=== PATIENT | female | born 1965 | race Caucasian/White ===

== ENCOUNTER 2020-05-12 08:55 | Outpatient (REF) | payer OTHER, SELFPAY ==
[2020-05-12 09:13] LABS: COVID-19 Test Negative (Negative)
== END 2020-05-12 08:56 | disposition home or self-care (01) ==
LOC: HO.EMPCOV 08:55
PROVIDERS: Visit Provider Internal Medicine
DX: Z20.822 Contact with and (suspected) exposure to COVID-19 (principal)
CPT/HCPCS: 36415; 87635; C9803

== ENCOUNTER 2020-05-23 13:53 | Outpatient (REF) | payer SELFPAY ==
[2020-05-23 14:38] LABS: Cholesterol 172 mg/dL
== END 2020-05-23 13:54 | disposition home or self-care (01) ==
LOC: HO.LNC 13:53
PROVIDERS: Visit Provider Pathology Anatomic Pathology & Clinical Pathology
DX: Z13.89 Encounter for screening for other disorder (principal)
CPT/HCPCS: 36415; 82465

== ENCOUNTER 2020-08-13 08:01 | Outpatient (REF) | payer OTHER, SELFPAY ==
[2020-08-13 08:27] LABS: COVID-19 Test Negative (Negative)
== END 2020-08-13 08:02 | disposition home or self-care (01) ==
LOC: HO.EMPCOV 08:01
PROVIDERS: Visit Provider Internal Medicine
DX: Z20.822 Contact with and (suspected) exposure to COVID-19 (principal)
CPT/HCPCS: 36415; 87635; C9803

== ENCOUNTER 2020-09-03 11:54 | Day surgery (SDC) | payer OTHER, SELFPAY ==
[2020-08-28 12:38] VITALS: BMI 30.9
--- NOTE | 2020-09-01 14:31 | HO.ANESPROP2 ---
Documented by User: Charlette George 09/01/20 14:32 HPI - Anesthesia Eval Consult details Narrative: 55yo F for Upper Endoscopy and Colonoscopy [facility] Past Medical History Medical History (Updated 08/28/20 @ 12:42 by Madyson Foster) Anemia Back pain Cervical dysplasia Elevated cholesterol GERD (gastroesophageal reflux disease) Hiatal hernia Hx of papillary thyroid carcinoma Hypothyroid Seizures Surgical History Surgical History (Updated 08/28/20 @ 12:42 by Madyson Foster) H/O colonoscopy Hx of parathyroidectomy Hx of tonsillectomy Hx of total thyroidectomy Social History Social History (Updated 08/28/20 @ 12:44 by Madyson Foster) Household Members: Spouse Are you a primary healthcare receptionist to a significant other at home: No Do you presently have visiting nurse or other home services: No Use of substances other than those prescribed or required for medical reasons: No Have you been hit, kicked, punched, or otherwise hurt by someone within the past year? If so, by whom?: No Are you DNR?: No Advance Directives Information Provided: No Recently lost weight without trying: No Eating poorly because of decreased appetite: No Nutrition Risks: No Nutritional Risk Patient : No Poor oral hygiene: No Meds Allergies Allergy/AdvReac Type Severity Reaction Status Date / Time No Known Allergies Allergy Verified 08/28/20 12:25 Home Medications Medication Instructions Recorded Confirmed Last Taken Type cholecalciferol (vitamin D3) 25 mcg PO DAILY 08/28/20 08/28/20 Unknown History [Vitamin D3] levothyroxine [Euthyrox] 125 mcg PO DAILY 08/28/20 08/28/20 09/03/20 History omeprazole [Prilosec] 20 mg PO DAILY 08/28/20 08/28/20 Unknown History rosuvastatin 40 mg PO DAILY 08/28/20 08/28/20 Unknown History Exam Exam Date and Time: September 01, 2020 1431 Height,Weight and Vital Signs: Height 5 ft 4 in Weight 81.647 kg Assessment and Plan Assessment Anesthesia Assessment: Chart Reviewed Documented by User: Ivis Smith 09/03/20 12:50 [facility] Past Medical History Medical History (Updated 08/28/20 @ 12:42 by Madyson Foster) Anemia Back pain Cervical dysplasia Elevated cholesterol GERD (gastroesophageal reflux disease) Hiatal hernia Hx of papillary thyroid carcinoma Hypothyroid Seizures Family History Family history of problems with anesthesia: No Surgical History Surgical History (Updated 08/28/20 @ 12:42 by Madyson Foster) H/O colonoscopy Hx of parathyroidectomy Hx of tonsillectomy Hx of total thyroidectomy History of Problems with Anesthesia: No Social History Social History (Updated 08/28/20 @ 12:44 by Madyson Foster) Household Members: Spouse Are you a primary healthcare receptionist to a significant other at home: No Do you presently have visiting nurse or other home services: No Use of substances other than those prescribed or required for medical reasons: No Have you been hit, kicked, punched, or otherwise hurt by someone within the past year? If so, by whom?: No Are you DNR?: No Advance Directives Information Provided: No Recently lost weight without trying: No Eating poorly because of decreased appetite: No Nutrition Risks: No Nutritional Risk Patient : No Poor oral hygiene: No Meds Allergies Allergy/AdvReac Type Severity Reaction Status Date / Time No Known Allergies Allergy Verified 08/28/20 12:25 Home Medications Medication Instructions Recorded Confirmed Last Taken Type cholecalciferol (vitamin D3) 25 mcg PO DAILY 08/28/20 08/28/20 Unknown History [Vitamin D3] levothyroxine [Euthyrox] 125 mcg PO DAILY 08/28/20 08/28/20 09/03/20 History omeprazole [Prilosec] 20 mg PO DAILY 08/28/20 08/28/20 Unknown History rosuvastatin 40 mg PO DAILY 08/28/20 08/28/20 Unknown History Exam Height,Weight and Vital Signs: Vital Signs Temp Pulse Resp BP Pulse Ox 09/03/20 12:08 98.4 F 82 16 126/82 97 Airway Mallampati Class: II TM Dist: >3cm Neck ROM: Full Heart: RRR Lungs: CTAB Assessment and Plan Assessment Anesthesia Assessment: Anesthesia Plan Discussed and Chart Reviewed Final Anesthetic Review NPO: Yes ASA Class: II Final Preanesthetic Review: No Changes in Pt Med Stat, Meds/Allgs Chart Reviewed, Consent Obtained/Reviewed and Anes Risks/Benef Reviewed Patient Risk: Low Procedure Risk: Low Assessment/Block/Sedation in SS: Assess/Block/Sedation-SS Anesthetic Plan Anesthetic Plan: MAC: Disposition: Standard PACU
[2020-09-03] VITALS (12 sets, daily range): BP systolic 96–148; BP diastolic 57–95; PULSE 59–86; RESP 16–20; TEMP 36.1–36.9; O2SAT 97–100
--- NOTE | 2020-09-03 | ECG_ITS ---
Test Reason : CHEST PAIN Blood Pressure : / mmHG Vent. Rate : 055 BPM Atrial Rate : 055 BPM P-R Int : 146 ms QRS Dur : 082 ms QT Int : 492 ms P-R-T Axes : 043 052 050 degrees QTc Int : 470 ms Sinus bradycardia Otherwise normal ECG No previous ECGs available Referred By: Carter Phillips Electronically Signed By:MANDIE WILLETT
[2020-09-03] MEDS: Lactated Ringers 1,000 ML 100 ML IVCONT (12:17)
--- NOTE | 2020-09-03 12:53 | MHC.SHP ---
Pre-Procedural Eval Section A The patient is an INPATIENT: No Changes since office visit: No Cold of Flu in the past 2 weeks, No New Medical Problems, No Changes in Medication and No Patient answered all questions The History & Physical has been completed within 30 days and I have reviewed it.: Yes Section B Chief Complaint: screening,hx of colonic polyps Allergies: Allergies Allergy/AdvReac Type Severity Reaction Status Date / Time No Known Allergies Allergy Verified 08/28/20 12:25 Plan I have reviewed the history and physical and performed a pertinent physical examination on my patient. No changes have occurred unless specified.
--- NOTE | 2020-09-03 13:32 | P.BOP_ITS ---
Brief Operative Note Date of Service: 09/03/20 Pre-op diagnosis: gerd screening Post-op diagnosis: same Procedure: EGD/colon Surgeon: Dong Taylor Anesthesia: MAC Was an Director [employer] used for this Procedure?: No Estimated blood loss (mL): 2 Pathology: other (bxs antrum, egj, duodenum) Condition: stable Disposition: PACU
--- NOTE | 2020-09-03 14:05 | OP_ITS ---
SURGEON: Dong Taylor MD INDICATIONS: 1. Gastroesophageal reflux disease. 2. Colon cancer screening and personal history of colon polyps. PREOPERATIVE DIAGNOSIS: POSTOPERATIVE DIAGNOSIS: PROCEDURE PERFORMED: ESTIMATED BLOOD LOSS: COMPLICATIONS: ANESTHESIA: Monitored anesthesia care. ASSISTANTS: SPECIMENS: PROCEDURES PERFORMED: 1. Upper endoscopy with biopsy. 2. Colonoscopy to the terminal ileum. DESCRIPTION OF PROCEDURE: History and physical performed. The risks and benefits of the procedure were explained to the patient, and informed consent was obtained. The patient was placed in the left lateral decubitus position. The Olympus video gastroscope was introduced into the esophagus, stomach, and duodenum. Examination was performed and the scope was removed. She tolerated the procedure well and was repositioned for colonoscopy. Digital rectal exam was performed and was found to be normal. The Olympus pediatric video colonoscope was introduced into the rectum and advanced to the cecum without difficulty. The cecum was identified by transillumination, palpation, and identification of ileocecal valve. Examination was performed. The scope was removed. She tolerated the procedure well and was transferred to the recovery area in stable condition. FINDINGS: UPPER ENDOSCOPY: Esophagus: The esophagus was normal. There was no esophagitis. There was a 4 cm hiatal hernia. Stomach: The stomach showed no evidence of masses, ulcers, or polyps. Duodenum: The bulb and second portion were normal. Biopsies were obtained from the second portion of the duodenum, antrum, and EG junction. COLONOSCOPY: The terminal ileum was examined and appeared normal. The visualized colonic mucosa was within normal limits without evidence of masses or ulcers. No polyps were identified. There was mild sigmoid diverticulosis with scattered diverticula throughout the colon. Retroflexed examination showed small internal hemorrhoids. IMPRESSION: 1. Gastroesophageal reflux disease. 2. Hiatal hernia. 3. Diverticulosis. RECOMMENDATIONS: 1. Follow up the biopsy results. 2. Repeat colonoscopy could be considered in 5-10 years, because of prior history of colon polyps. MD FIFI Braden/JIM / [id number] MTDD
[2020-09-03] MEDS: ondansetron HCL 4 MG/2 ML VIAL IVPUSH (15:23)
== END 2020-09-03 15:35 | disposition home or self-care (01) ==
PROVIDERS: Visit Provider Internal Medicine Gastroenterology
PROC: (CPT 45378; principal; 2020-09-03 13:00)
DX: Z12.11 Encounter for screening for malignant neoplasm of colon (principal); Z86.010 Personal history of colon polyps; K57.30 Diverticulosis of large intestine without perforation or abscess without bleeding; K21.9 Gastro-esophageal reflux disease without esophagitis; K44.9 Diaphragmatic hernia without obstruction or gangrene; D64.9 Anemia, unspecified; E89.0 Postprocedural hypothyroidism; Z85.850 Personal history of malignant neoplasm of thyroid; Z92.3 Personal history of irradiation; Z79.899 Other long term (current) drug therapy
CPT/HCPCS: 45378; 43239; 88305; 88342; 93005; J2405

== ENCOUNTER 2023-05-20 12:00 | Outpatient (RCR) | payer BC, SELFPAY ==
--- NOTE | 2023-05-03 13:36 | MHC.PT.EP ---
[facility] [place] [facility] [place] Office [place] Office [address] [phone] F: [phone] F: [phone] F: [phone] F: [phone] Physical Therapy Plan of Care Date of Evaluation: 05/03/23 Date of Surgery: N/A Diagnosis: L leg pain, piriformis syndrome Assessment: Pt is a 57yo female who presents to PT for over a year h/o L hip pain, L hip weakness. Pt reports she had a lot of testing done and saw a few doctors, and is referred to PT at this time. PT exam reveals +testing for L hip OA, decreased HS flexibility, weakness hip and core musculature, and poor body mechanics. Skilled PT indicated to address these impairments, teach HEP to help manage symptoms and promote strength independently, and improve overall QOL and function. Pt in agreement with POC and is motivated to participate. Frequency and Duration: The patient will be seen 2x/week, x 4 weeks Short Term Goals: 1. In 2 weeks, patient will be able to effectively activate transverse abdominal muscle rated as 4/5 MMT. 2. In 2 weeks, patient will be I with phase 1 of HEP including ITB and HS stretching, and bed core/hip exercises. 3. In 2 weeks, patient will be able to complete 1/4 squat with neutral lumbar spine and UE support, pain < 5/10. Inspector [employer]ing Goals: 1. In 4 weeks, patient will be able to walk up staircase with reciprocal pattern without need of UE support. 2. In 4 weeks, patient will report overall reduced pain and improved function as demonstrated by 10 point increased score on LEFS. 3. In 4 weeks, patient will be able to lift her L LE in and out of the car without need for UE's to assist. Treatment Plan: Modalities to reduce pain, spasms and effusion. Manual therapy to restore motion and function. Therapeutic exercise to improve strength and flexibility. Neuromuscular re-education for posture and balance. Therapeutic activities to return to functional activities of daily living. Electronically signed by: Alexus Damon PT, DPT Please sign and return to therapist. Thank you for your referral.
== END 2023-08-22 12:16 | disposition home or self-care (01) ==
LOC: HO.PT 12:00
PROVIDERS: PCP Physician Assistant Medical; Visit Provider Physician Assistant
DX: M79.605 Pain in left leg (principal)
CPT/HCPCS: 97012; 97110; 97140; 97161; 97530

== ENCOUNTER 2024-04-20 13:40 | Emergency (ER) | payer OTHER, SELFPAY ==
[2024-04-20] VITALS (7 sets, daily range): BP systolic 79–120; BP diastolic 55–84; PULSE 74–80; RESP 16–24; TEMP 36.3–37; O2SAT 97–100; BMI 29.6
--- NOTE | ~2024-04-20 | XR_ITS ---
EXAMINATION: XR CHEST CLINICAL INFORMATION: near syncope COMPARISON: None available. TECHNIQUE: Frontal view of the chest was obtained. FINDINGS: Cardiac, hilar, and mediastinal contours are normal. Descending aorta is mildly tortuous. The lungs are clear bilaterally. No pneumothorax or effusion. No acute soft tissue or bony abnormalities. Degenerative changes of the spine. XR/XR chest 1V IMPRESSION: No active pulmonary disease. Electronically signed by: Shashi Linn MD 04/20/2024 02:28 PM [facility]
--- OUTSIDE RECORDS SUMMARY | 2024-04-20 13:44 | XMS_ITS | Patient Health Record ---
Author Organization [facility] Address [address] [place] [address] Care Team Providers Care Arm Maker Name Role Phone NHI CARRERO Primary Care Provider Nelson Taylor Jr Dongchristina Skelton REASON FOR REFERRAL No Information MEDICATIONS Medication SIG (Take, Route, Frequency, Duration) Notes Start Date End Date Status Rosuvastatin Calcium 40 MG Orally Active Vitamin D (Ergocalciferol) 1000 mcg Active Ibuprofen PRN Active Euthyrox 125 MCG Orally Act rajwinder Omeprazole 40 MG 1 capsule 30 minutes before morning meal Orally Once a day for 30 days 08/25/2020 Active MiraLax (colon prep) 8.3 ounce ((238) grams mixed with Gatorade or Crystal Light orally begin at 5:00 p.m. the day before the procedure for 1 day 08/25/2020 Active IMMUNIZATIONS Vaccine Route Administration Date Status Comme nts Influenza Unknown 01/23/2020 Administered SOCIAL HISTORY Tobacco Use: Social History Observation Description Date Details (start date - stop date) Never Smoker NA - NA Sex Assigned At : Social History Observation Description Sex Assigned At Unknown Tobacco Use/Smoking Question Answer Notes Patient is a nonsmoker Alcohol Screen Question Answer Notes Did you have a drink contain ing alcohol in the past year? Yes How often did you have a dri nk containing alcohol in the past year? 2 to 4 times a month (2 points) How often did you have 6 or more drinks on one occasion in the past year? Never (0 point) Points 2 Interpretation Negative PROBLEMS Problem Type ICD Code Onset Dates Problem Status W/U Status Risk SNOMED Code Notes Problem Gastroesophageal reflux disease without esophagitis (K21.9) Active confirmed 481814973 Problem Personal history of colonic polyps (Z86.010) Active confirmed 552928303 Problem Colon cancer screening (Z12.11) Active confirmed 334639003 PLAN OF TREATMENT Pending Test Test Name Order Date IRON + IBC (FE) 08/28/2020 FERRITIN 08/28/2020 CBC w/o DIFF 08/28/2020 CELIAC DISEASE ANTIBODY PANEL 08/28/2020 Future Test Test Name Order Date UPPER GI ENDOSCOPY 08/25/2020 COLONOSCOPY 08/25/2020 Insurance Providers Payer Name Payer Address Payer Phone Subscriber Number Group Number Insured Name Patient Relationship to Insured Coverage Start Date Coverage End Date [employer] PPO [address] [place], [place] [phone] [id number] [id number] [id number] Self - patient is the insured MEDICAL (GENERAL) HISTORY Medical History History ICD Code hyperlipidemia Hypothyroidism Surgical History Surgery Date(Month/Year) tonsillectomy thyroidectomy, complete, his tory of papillary thyroid carcinoma, 2001 partial parathyroidectomy
--- NOTE | 2024-04-20 13:52 | ED_ITS ---
HPI - General Adult General Chief complaint: Dizziness Stated complaint: faint Time Seen by Provider: 04/20/24 13:52 Source: patient Mode of arrival: wheelchair Limitations: no limitations History of Present Illness ED Provider: Reyna Redd PA-C HPI narrative: Patient is a 58 year old assigned female at a history of anemia, seizures, hypothyroidism, and seizures reported medical history presenting to the emergency department today after a syncopal episode. Patient states that she donated blood today, felt like the procedure went fast, and began to felt faint shortly after. Patient states that she began to get dizzy / lightheaded and then laid on a bench when she came to with others around her. Patient states that she is feeling better. Patient denies any abdominal pain, nausea, vomiting, fever, chills, blurry vision, double vision, loss of vision, chest pain, difficulty breathing, shortness of breath, back pain, night sweats, pain with urination, increased urinary frequency, increased urinary urgency, blood in her urine or stool, recent trauma or falls, bowel incontinence, bladder incontinence, or any other complaints at this time. Relieving factors: none Exacerbating factors: none Associated symptoms: syncope Treatments prior to arrival: none Related Data Home Medications ?Medication ?Instructions ?Recorded ?Confirmed cholecalciferol (vitamin D3) 25 25 mcg PO DAILY 08/28/20 08/28/20 mcg (1,000 unit) tablet (Vitamin D3) levothyroxine 125 mcg tablet 125 mcg PO DAILY 08/28/20 08/28/20 (Euthyrox) omeprazole 20 mg capsule,delayed 20 mg PO DAILY 08/28/20 08/28/20 release rosuvastatin 40 mg tablet 40 mg PO DAILY 08/28/20 08/28/20 Previous Rx's ?Medication ?Instructions ?Recorded erythromycin 5 mg/gram (0.5 %) eye 1 appl ophthalmic-Left DAILY 10 01/15/22 ointment days #3.5 grams Allergies Allergy/AdvReac Type Severity Reaction Status Date / Time No Known Allergies Allergy Verified 04/20/24 13:50 Review of Systems 2 Constitutional: Constitutional: Reports no additional constitutional complaints, Denies chills, Denies fever(s) and Denies night sweats Eyes: Eyes: Reports no additional eye complaints, Denies blurry vision, Denies change in vision, Denies diplopia, Denies eye discharge, Denies loss of vision and Denies eye pain ENT: Reports dizziness Cardiovascular: Cardiovascular: Reports no additional cardiovascular complaints, Denies chest pain, Reports syncope, Denies lightheadedness, Denies Loss of Consciousness and Denies dyspnea Respiratory: Respiratory: Reports no additional respiratory complaints and Denies dyspnea Gastrointestinal: Gastrointestinal: Reports no additional gastrointestinal complaints, Denies abdominal pain, Denies melena, Denies hematochezia, Denies change in bowel habits and Denies change in stool character Genitourinary: Genitourinary: Denies hematuria, Denies urinary frequency, Denies dysuria, Denies urinary incontinence, Denies urinary hesitancy and Denies urinary urgency Musculoskeletal: Musculoskeletal: Reports no additional musculoskeletal complaints, Denies numbness and Denies tingling Neurologic: Reports dizziness, Reports syncope, Denies loss of vision, Denies numbness and Denies tingling Psychiatric: Psychiatric: Reports no additional psychiatric complaints Endocrine: Endocrine: Reports no additional endocrine complaints Hematologic/Lymphatic: Hematologic/Lymphatic: Reports no additional hematologic/lymphatic complaints Allergic/Immunologic: Allergic/Immunologic: Reports no additional allergic/immunologic complaints PMFSH Past Medical History Attestation statement: The following information was validated with the patient. Source: old records reviewed and nursing notes reviewed Medical History Back pain Cervical dysplasia GERD (gastroesophageal reflux disease) Anemia Hiatal hernia Seizures Hx of papillary thyroid carcinoma Hypothyroid Elevated cholesterol Surgical History H/O colonoscopy Hx of parathyroidectomy Hx of total thyroidectomy Hx of tonsillectomy Social History Social History Household Members: Spouse Are you a primary care management associate to a significant other at home: No Do you presently have visiting nurse or other home services: No Alcohol intake: current Alcohol intake frequency: a few times a month Alcohol type: wine Smoked in Last 30 Days: No Use of substances other than those prescribed or required for medical reasons: No Advance Directives: No Advance Directives Information Provided: No Do you have a plan to hurt others: No Plan Physical Exam ED Vital Signs: Vital Signs - 24 hr 04/20/24 13:48 04/20/24 13:53 04/20/24 13:56 Temperature 97.4 F Pulse Rate 80 74 75 Respiratory Rate 24 H 16 20 Blood Pressure 79/55 L 112/84 120/84 Pulse Oximetry 100 100 98 Oxygen Delivery Method Room Air Room Air Room Air BMI result Body Mass Index 29.6 Const General: cooperative, no acute distress, alert and awake Nutritional Appearance: well nourished Orientation/consciousness: patient oriented x3 Limitations: no limitations HENMT Head: Yes normal to inspection and Yes atraumatic Ears: hearing grossly normal bilaterally and external ears normal General nose exam: Normal external nose present, no nasal discharge noted and no epistaxis Face and sinus: Yes normal facial exam, No abrasion and No laceration Mouth: Normal oral and palatal mucosa present, no drooling and no muffled voice Eyes General: appearance normal, both eyes and all related structures Periorbital: periorbital findings normal Eyelids: Yes eyelids normal Conjunctivae: conjunctivae normal Pupils: Equal, round and reactive pupils present EOM: EOMs intact bilaterally Neck Neck: Yes normal visual inspection, Yes full ROM and Yes no lymphadenopathy Chest Chest palpation & inspection: normal inspection of the chest Resp Effort & Inspection: normal respiratory effort and able to speak in complete sentences GI Inspection: Yes normal to inspection Neuro General: patient oriented x3 and moves all extremities Cranial nerves: Yes Equal, round and reactive pupils present Cognition (Neuro): normal cognition Extrem General: Yes normal to inspection, Yes full ROM and Yes capillary refill normal Psych Appearance: grossly normal Mental Status: mental status grossly normal Affect: normal affect Attitude: cooperative Thought process: Normal thought process present Thought content: Normal thought content present Insight: Good insight present (Psych) Medications Administered Discontinued Medications Generic Name Dose Route Start Last Admin Trade Name Freq PRN Reason Stop Dose Admin Sodium Chloride 1,000 mls @ 999 mls/hr 04/20/24 14:00 04/20/24 14:03 Ns IV 04/20/24 15:00 999 mls/hr .Q1H1M JOSE FRANCISCO Administration Medical Decision Making Medical Decision Making MDM Narrative: Patient is a 58 year old assigned female at a history of anemia, seizures, hypothyroidism, and seizures reported medical history presenting to the emergency department today after a syncopal episode. Patient's physical exam was unremarkable. Patient's blood work was unremarkable. Patient's EKG was unremarkable. Patient's chest x-ray showed no acute process. I explained my physical exam findings as well as all test results to the patient. I answered all questions asked by the patient. Patient's clinical presentation is most consistent with a syncopal episode after phlebotomy / vasovagal syncope. I stressed the importance of the patient taking her medication as directed (either prescribed or as the over the counter packaging recommends). I stressed the importance of the patient following up with her primary care provider. I stressed the importance of the patient returning to the emergency department immediately if her symptoms were to worsen or if she were to develop any dizziness, shortness of breath, difficulty breathing, chest pain, blurry vision, loss of vision, nausea, vomiting, abdominal pain, fever, chills, back pain, or any other complaints. Patient verbalized agreement and understanding with this treatment plan and discharge. Differential Diagnosis Differential Diagnoses: The differential diagnosis associated with the presentation includes Syncope Vasovagal syncope Admission/Observation Consideration of admission/observation: Escalation of care including admission/observation considered Patient would have been admitted to the hospital had her work up had any findings where hospital admission was appropriate and her clinical presentation warranted hospital admission. Lab Data [facility] Lab Attestation statement: I reviewed the patient's lab results. My interpretation of these results are in the [facility] Rationale portion of this note. 04/20/24 14:01 04/20/24 14:01 Labs: Lab Results 04/20/24 04/20/24 Range/Units 13:51 14:01 WBC 7.6 (4.8-10.8) X10*3/uL RBC 4.65 (4.20-5.50) X10*6/uL Hgb 12.4 (12.0-16.0) g/dl Hct 38.5 (37.0-47.0) % MCV 82.8 (80.0-98.0) fL MCH 26.7 L (27.0-33.0) pg MCHC 32.2 (31.0-35.0) g/dl RDW 14.5 (11.0-16.0) % Plt Count 294 (160-400) X10*3/uL MPV 9.9 (9.4-12.3) fL Immature Gran % (Auto) 0.1 (0.0-0.4) % Neut % (Auto) 38.6 L (45-73) % Lymph % (Auto) 49.3 H (20-40) % [place] % (Auto) 9.9 (2-11) % Eos % (Auto) 1.3 (0-4) % Baso % (Auto) 0.8 (0-2) % Lymph # (Auto) 3.7 (1.2-4.9) X10*3/uL [place] # (Auto) 0.8 (0.1-1.2) X10*3/uL Eos # (Auto) 0.1 (0.0-0.4) X10*3/uL Baso # (Auto) 0.1 (0.0-0.2) X10*3/uL Abs Immat Gran (auto) 0.01 (0.00-0.03) X10*3/uL Absolute Neuts (auto) 2.9 (2.0-8.3) x10*3/uL Absolute Nucleated RBC 0.000 (0.0-0.012) X10*3/uL Nucleated RBC % (auto) 0.0 (0.0-0.2) /100WBC PT 11.3 (10.9-12.4) SEC INR 1.0 (0.9-1.1) APTT 23.8 L (26.0-36.8) SEC Sodium 141 (135-145) mmol/L Potassium 3.4 (3.3-5.1) mmol/L Chloride 107 (96-108) mmol/L Carbon Dioxide 24 (22-29) mmol/L Anion Gap 13 (12-20) BUN 15 (9-16) mg/dL Creatinine 0.96 (0.5-1.4) mg/dL Estim Creat Clear Calc 63.8 Estimated GFR 59 POC Glucose 116 H (60-115) mg/dL Random Glucose 146 H (60-115) mg/dL Calcium 9.8 (8.4-10.2) mg/dL Magnesium 2.2 (1.6-2.6) mg/dL Total Bilirubin 0.3 (0.0-1.0) mg/dL AST 39 H (5-31) U/L ALT 42 H (0-31) U/L Alkaline Phosphatase 64 (39-117) U/L Troponin I High Sens < 2.7 (<3.5-17.0) ng/L Total Protein 6.9 (6.5-8.0) g/dL Albumin 4.1 (3.5-5.0) g/dL Influenza Type A (PCR) NEGATIVE (Negative) Influenza Type B (PCR) NEGATIVE (Negative) RSV RNA Qual (PCR) NEGATIVE (Negative) SARS-CoV-2 RNA (RT-PCR) NEGATIVE (Negative) Independent Interpretation I performed an independent interpretation of an: EKG and Plain X-Ray Interpretation: My interpretation is in agreement with the radiologist's impression of this imaging study. L EXAMINATION: XR CHEST CLINICAL INFORMATION: near syncope COMPARISON: None available. TECHNIQUE: Frontal view of the chest was obtained. FINDINGS: Cardiac, hilar, and mediastinal contours are normal. Descending aorta is mildly tortuous. The lungs are clear bilaterally. No pneumothorax or effusion. No acute soft tissue or bony abnormalities. Degenerative changes of the spine. XR/XR chest 1V IMPRESSION: No active pulmonary disease. Electronically signed by: Shashi Linn MD 04/20/2024 02:28 PM [facility] Dictated By: Shashi Linn MD Signed By: Electronically signed by Shashi Linn MD 04/20/24 1428 I independently interpreted this EKG and am in agreement with the below findings: Vent. Rate: 85 BPM ? ? Atrial Rate: 85 BPM P-R Int: 140 ms? QRS Dur: 082 ms QT Int: 412 ms ? P-R-T Axes: 061 065 068 degrees QTc Int: 490 ms ? Normal sinus rhythm DD/ Radiology Impression Discussion of test interpretation with radiology: I have reviewed the radiologist's reading. Discharge Plan Discharge Clinical Impression: Syncope Patient Disposition: Home, Self-Care Instructions: Syncope (DC) Additional Instructions: Your work up was unremarkable and reassuring. Follow up with your primary care provider. Return to the emergency department immediately if your symptoms worsen or if you develop any dizziness, shortness of breath, difficulty breathing, chest pain, blurry vision, loss of vision, nausea, vomiting, abdominal pain, fever, chills, back pain, or any other complaints. Prescriptions: No Action erythromycin 5 mg/gram (0.5 %) ointment 1 appl ophthalmic-Left DAILY 10 Days Qty: 3.5 0RF levothyroxine [Euthyrox] 125 mcg Tablet 125 mcg PO DAILY omeprazole 20 mg Capsule,Delayed Release(Dr/Ec) 20 mg PO DAILY rosuvastatin 40 mg Tablet 40 mg PO DAILY cholecalciferol (vitamin D3) [Vitamin D3] 25 mcg (1,000 unit) Tablet 25 mcg PO DAILY Referrals: Kendra Iyer MD [Primary Care Provider] - Stand Alone Forms: Work/School Release Print Language: Marshallese
--- NOTE | 2024-04-20 13:55 | PC.NURSE ---
20G peripheral IV inserted to pt.'s RAC. Tolerated well. Good blood return, and flushes without difficulty or discomfort per pt.
[2024-04-20 13:56] LABS: Glucose, Whole Blood 116 mg/dL (60-115)
[2024-04-20] MEDS: 0.9 % Sodium Chloride 1,000 ML 999 ML IV (14:03)
[2024-04-20 14:08] LABS: MANUAL DIFF FLAG NO
[2024-04-20 14:09] LABS: Basophils Absolute Auto 0.1 X10*3/uL (0.0-0.2); Basophils Percent Auto 0.8 % (0-2); Eosinophils Absolute Auto 0.1 X10*3/uL (0.0-0.4); Eosinophils Percent Auto 1.3 % (0-4); Hematocrit 38.5 % (37.0-47.0); Hemoglobin 12.4 g/dl (12.0-16.0); Imm Gran Abs Auto 0.01 X10*3/uL (0.00-0.03); Imm Gran Pct Auto 0.1 % (0.0-0.4); Lymphocytes Absolute Auto 3.7 X10*3/uL (1.2-4.9); Lymphocytes Percent Auto 49.3 % (20-40); Mean Corpuscular HGB Conc 32.2 g/dl (31.0-35.0); Mean Corpuscular Hemoglobin 26.7 pg (27.0-33.0); Mean Corpuscular Volume 82.8 fL (80.0-98.0); Mean Platelet Volume 9.9 fL (9.4-12.3); Monocytes Absolute Auto 0.8 X10*3/uL (0.1-1.2); Monocytes Percent Auto 9.9 % (2-11); Neutrophils Absolute Auto 2.9 x10*3/uL (2.0-8.3); Neutrophils Percent Auto 38.6 % (45-73); Platelet Count 294 X10*3/uL (160-400); Red Blood Count 4.65 X10*6/uL (4.20-5.50); Red Cell Distribution Width 14.5 % (11.0-16.0); White Blood Count 7.6 X10*3/uL (4.8-10.8)
[2024-04-20 14:27] LABS: Albumin Level 4.1 g/dL (3.5-5.0); Alkaline Phosphatase 64 U/L (39-117); Anion Gap 13 (12-20); Aspartate Amino Transferase 39 U/L (5-31); Bilirubin Total 0.3 mg/dL (0.0-1.0); Blood Urea Nitrogen 15 mg/dL (9-16); Calcium 9.8 mg/dL (8.4-10.2); Carbon Dioxide 24 mmol/L (22-29); Chloride 107 mmol/L (96-108); Creatinine Clr Calc Pharmacy 63.8; Estimated Glomerular Filt Rate 59; Glucose Random 146 mg/dL (60-115); Magnesium 2.2 mg/dL (1.6-2.6); Potassium 3.4 mmol/L (3.3-5.1); Sodium 141 mmol/L (135-145); Total Protein 6.9 g/dL (6.5-8.0)
[2024-04-20 14:30] LABS: Prothrombin Time 11.3 SEC (10.9-12.4)
[2024-04-20 14:32] LABS: Troponin-I High Sensitivity < 2.7 ng/L (<3.5-17.0)
[2024-04-20 14:34] LABS: Partial Thromboplastin Time 23.8 SEC (26.0-36.8)
[2024-04-20 14:44] LABS: Alanine Aminotransferase 42 U/L (0-31)
[2024-04-20 14:50] LABS: Influenza A PCR NEGATIVE (Negative); Influenza B PCR NEGATIVE (Negative); Resp Syncy Virus RNA Qual PCR NEGATIVE (Negative); SARS COV2 PCR INHOUSE NEGATIVE (Negative)
--- NOTE | 2024-04-20 15:06 | ECG_ITS ---
Test Reason : SYNCOPE Blood Pressure : */* mmHG Vent. Rate : 85 BPM Atrial Rate : 85 BPM P-R Int : 140 ms QRS Dur : 82 ms QT Int : 412 ms P-R-T Axes : 61 65 68 degrees QTcB Int : 490 ms Normal sinus rhythm Nonspecific T wave abnormality Abnormal ECG When compared with ECG of 03-Sep-2020 15:11, Vent. rate has increased by 30 bpm Nonspecific T wave abnormality, worse in Inferior leads Nonspecific T wave abnormality now evident in Anterolateral leads Referred By: Reyna Redd Electronically Signed By: MANDIE WILLETT
--- NOTE | 2024-04-20 15:43 | PC.NURSE ---
PA wants another L of fluids prior to d/c
[2024-04-20] MEDS: Lactated Ringers 1,000 ML 999 ML IV (15:46)
--- NOTE | 2024-04-20 18:09 | PC.NURSE ---
MARGARITO Rubio notified and aware of pt.'s pre-d/c BP. PA OK with pt. going home. Pt. verbalizes understanding that if she becomes dizzy, lightheaded or sx. return, she is to return to the ED for evaluation.
== END 2024-04-20 18:10 | disposition home or self-care (01) ==
PROVIDERS: Physician Assistant Medical; Emergency Provider Emergency Medicine; PCP Internal Medicine
DX: R55 Syncope and collapse (principal); R42 Dizziness and giddiness; R94.31 Abnormal electrocardiogram [ECG] [EKG]; Z79.899 Other long term (current) drug therapy; Z03.818 Encounter for observation for suspected exposure to other biological agents ruled out
CPT/HCPCS: 0241U; 71045; 80053; 82947; 83735; 84484; 85025; 85610; 85730; 93005; 96360; 96361; 99285; J7120

== ENCOUNTER → 2024-04-20 13:52 | Outpatient (BNV) | payer OTHER, SELFPAY | PROVIDERS: Emergency Provider Emergency Medicine; PCP Internal Medicine; Visit Provider Radiology Diagnostic Radiology | DX: R55 Syncope and collapse (principal) | CPT/HCPCS: 71045 ==

== ENCOUNTER → 2024-04-20 15:06 | Outpatient (BNV) | payer OTHER, SELFPAY | PROVIDERS: Emergency Provider Emergency Medicine; PCP Internal Medicine; Visit Provider Internal Medicine | DX: R94.31 Abnormal electrocardiogram [ECG] [EKG] (principal) | CPT/HCPCS: 93010 ==

== ENCOUNTER 2024-09-11 14:53 | Outpatient (AMB) | payer OTHER, SELFPAY ==
--- NOTE | 2024-09-11 15:03 | A.OFFVIS_ITS ---
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 In his generally very active but over the last few months has notice that while going up an incline or a flight of stairs she feels wobbly in his exertional shortness of breath. She does not have any symptoms of chest discomfort. Last December she had episode and bout of few days where she would feel flip-flop in her chest and she did record a EKGs based off smart watch which is suggestive of isolated extra systoles most suggestive of PVCs. Symptoms since then have subs ided and she has not had any recurrent similar feeling. However she said these symptoms were mostly happening at nighttime and she would feel not very good visit. In April she had blood donation and after donation she said was done much quicker than usual and she was also advised to go home within 8 minutes. When she got up she felt lightheaded and subsequently she said down and then she had passed out. She was referred to the emergency room in the workup there was negative and suspected that her syncope was either vasovagal or orthostatic. She has not had any recurrent syncopal events since then. She has not had prior episodes of syncope although she has been noted to have low blood pressure. She is drinking enough water. She is currently on high-intensity statin therapy due to markedly elevated cholesterol, with a family history of hyperlipidemia. There was no family history of premature coronary artery disease. She also history of diabetes and currently on dual therapy for the same. She denies any prolonged palpitation irregular heartbeat. No heart failure symptoms. [facility] Medical History Back pain Cervical dysplasia GERD (gastroesophageal reflux disease) Anemia Hiatal hernia Seizures Hx of papillary thyroid carcinoma Hypothyroid Elevated cholesterol Surgical History H/O colonoscopy Hx of parathyroidectomy Hx of total thyroidectomy Hx of tonsillectomy Family History Father Prostate cancer Mother Alzheimer dementia Social History Household Members: Spouse Are you a primary resident care aid to a significant other at home: No Do you presently have visiting nurse or other home services: No Alcohol intake: current Alcohol intake frequency: a few times a month Alcohol type: wine Patient Tobacco Use Status: Never used Tobacco Review of Systems Const Denies weakness Eyes Reports no additional complaints ENT Denies dizziness Card Denies chest pain, Reports chest pain with activity, Denies syncope, Denies rapid heart rate, Denies pedal edema, Denies edema, Denies leg edema, Denies lightheadedness, Denies palpitations, Denies dyspnea, Denies dyspnea on exertion and Denies orthopnea Resp Denies cough, Denies dyspnea and Denies dyspnea on exertion GI Denies hematochezia and Denies change in stool character Musc Reports abnormal gait, Denies muscle cramps, Denies muscle weakness, Denies numbness, Denies radiating pain into limb and Denies tingling Neuro Reports abnormal gait, Denies dizziness, Denies syncope, Denies numbness, Denies tingling and Denies weakness Endo Denies palpitations Physical Exam Vital Signs: Last Vital Signs Pulse 78 09/11/24 15:04 BP 118/60 09/11/24 15:04 BMI result Body Mass Index 29.9 Const General: cooperative, comfortable, no acute distress, alert, awake, Physically active and well groomed Nutritional Appearance: overweight Orientation/consciousness: patient oriented x3 Limitations: no limitations HEENT Head: Yes normocephalic and Yes atraumatic Neck Neck: Yes trachea midline, Yes supple and Yes no JVD Resp Effort & Inspection: normal respiratory effort Auscultation: clear to auscultation bilaterally Cardio Jugular venous distension: no JVD Palpation: normal PMI Rate: regular rate Rhythm: regular rhythm Heart sounds: S1 normal heart sound present, S2 normal heart sound present, no click, no gallops, no murmurs and no rubs GI Auscultation: normal bowel sounds Skin General skin exam: no rashes or lesions noted Neuro General: patient oriented x3 and no focal motor deficits Extrem General: Yes no clubbing, cyanosis or edema Psych Appearance: grossly normal Office Procedures EKG Details: EKG shows normal sinus rhythm with nonspecific ST wave changes 49734-[id number], Complete Assessment & Plan Assessment & Plan (1) Short of breath on exertion: Code(s): R06.02 - Shortness of breath Category: Medical Plan: Patient with increased symptoms exertional shortness of breath over the last few months and also burden of PVCs that new onset for her last year. She has multiple risk factors for coronary artery disease. Will suggest her to undergo exercise myocardial perfusion imaging to evaluate for myocardial ischemia. Also suggest an echocardiogram to evaluate for cardiac structure and function. These tests will be scheduled in near future. If these tests are within normal limits suggested that she may consider undergoing screening for coronary atherosclerosis with coronary calcium score. She is interested in the same. (2) PVCs (premature ventricular contractions): Code(s): I49.3 - Ventricular premature depolarization Category: Medical Plan: Patient last year had burden of palpitations and flip flop in his chest consistent with PVCs by her smart watch EKG. She says she was pretty symptomatic during that time but her symptoms have not dissipated. I have advised her to watch out for symptoms and record any triggers. Currently I have advised her to avoid stimulants. Given that she has no significant symptoms at this point time and lower blood pressure would avoid any pharmacotherapy. Evaluation for structural heart disease as above. (3) Syncope: Code(s): R55 - Syncope and collapse Plan: Patient with episode of syncope after blood donation. Most likely either vasovagal orthostatic syncope. Given this situation. At this point time advised to maintain adequate hydration as well as salt intake. She tends to run lower blood pressure. If she has recurrent events despite adequate lifestyle modification would suggest further testing including a tilt-table test. Follow up in the clinic in 3 months time, sooner p.r.n.. Thank you for allowing me to partake in his care Orders: Orders NM cardiolite stress test 2 Weeks R06.02 - Shortness of breath, R07.9 - Chest pain, unspecified CT Coronary Calcium Score 2 Months R06.02 - Shortness of breath CA stress test Today R06.02 - Shortness of breath CA echo transthoracic complete Today R06.02 - Shortness of breath Coding Level of Care Code New Pt Level 4 (42093) Complex EM visit Add On G2211 Diagnoses Short of breath on exertion R06.02 PVCs (premature ventricular contractions) I49.3 Syncope R55 CPT Codes EKG - CPT: 97846-[id number], Complete ([id number])
[2024-09-11 15:04] VITALS: BP 118/60; PULSE 78; BMI 29.9
--- OUTSIDE RECORDS SUMMARY | 2024-09-11 16:37 | XMS_ITS | Patient Health Record ---
Author Organization [facility] Address [address] [place] [address] Care Team Providers Care Social Work Associate Name Role Phone NHI CARRERO Primary Care Provider Nelson Taylor Jr Dong Unavailable Reason For Referral No Information Medications Medication SIG (Take, Route, Frequency, Duration) Notes [...] the procedure for 1 day 08/25/2020 Active Immunizations Vaccine Route Administration Date Status Comme nts Influenza Unknown 01/23/2020 Administered Social History Tobacco Use: Social History Observation Description Date Details (start date - stop date) Never Smoker NA - NA Tobacco Use/Smoking Question Answer Notes Patient is [...] Never (0 point) Points 2 Interpretation Negative Problems Problem Type SNOMED Code ICD Code Onset Dates Problem Status W/U Status Risk Notes Problem 780432138 Colon cancer screening (Z12.11) Active confirmed Problem 769128319 Personal history of colonic polyps (Z86.010) Active confirmed Problem 285275395 Gastroesophageal reflux disease without esophagitis (K21.9) Active confirmed Plan Of Treatment Pending Test Test Name Order Date IRON + IBC (FE) 08/28/2020 FERRITIN 08/28/2020 CBC w/o DIFF 08/28/2020 CELIAC DISEASE ANTIBODY PANEL 08/28/2020 Future Test Test Name Order Date UPPER GI ENDOSCOPY 08/25/2020 COLONOSCOPY 08/25/2020 Insurance Providers Payer Name Payer Address Payer Phone Subscriber Number Group Number Insured Name Patient Relationship to Insured Coverage Start Date Coverage End Date [employer] PPO [address] [place] [phone] [id number] [id number] [id number] Self - patient is the insured Medical (General) History Medical History History ICD Code hyperlipidemia Hypothyroidism Surgical History Surgery Date(Month/Year) tonsillectomy thyroidectomy, complete, his tory of papillary thyroid carcinoma, 2001 partial parathyroidectomy
== END 2024-09-11 15:36 | disposition home or self-care (01) ==
LOC: HO.HCS 14:54
PROVIDERS: PCP Internal Medicine; Visit Provider Internal Medicine Cardiovascular Disease
DX: R06.02 Shortness of breath (principal); I49.3 Ventricular premature depolarization; R55 Syncope and collapse
CPT/HCPCS: 93010; 99204

== ENCOUNTER → 2024-09-11 14:53 | Outpatient (BNVA) | payer OTHER, SELFPAY | PROVIDERS: PCP Internal Medicine; Visit Provider Internal Medicine Cardiovascular Disease | DX: R06.02 Shortness of breath (principal); R55 Syncope and collapse; I49.3 Ventricular premature depolarization | CPT/HCPCS: 93005 ==

== ENCOUNTER → 2024-10-23 14:53 | Outpatient (REF) | payer OTHER, SELFPAY ==
--- NOTE | 2024-10-23 14:55 | CA_ITS ---
Transthoracic Echocardiogram Patient (Last, First, Middle): Vicky Meade A Gender: Female Date of : 1965 Age: 59 Procedure Date: 10/23/2024 Procedure Type: Transthoracic Echocardiogram Location: OP Height: 162. cm Weight: 76.21 kg BSA: 1.81 m2 Heart Rate: 68 bpm BP: 112 / 70 mmHg Visual Basic .Net Developer: JR Referring MD: Garret Ramos MD Symptoms: R06.02 - Shortness of breath Study Quality: Adequate ECG Rhythm: Sinus Conclusions: - The left ventricular systolic function is hyperdynamic. The visually estimated ejection fraction is >70%. - No obvious valvular pathology seen on this study. Findings Left Ventricle Normal left ventricular cavity size. There is normal left ventricular wall thickness. The left ventricular systolic function is hyperdynamic. The visually estimated ejection fraction is >70%. There is no evidence of regional wall motion abnormalities. Diastolic function is normal for age. Right Ventricle Normal right ventricular cavity size and systolic function. Atria Both atria are normal in size. Aortic Valve There is a normal trileaflet aortic valve. There is no aortic valve stenosis. There is no aortic valve regurgitation. Mitral Valve The mitral valve appears normal. There is no mitral valve regurgitation. There is no mitral valve stenosis. Pulmonic Valve The pulmonic valve is likely normal. Tricuspid Valve Normal tricuspid valve structure. There is trace tricuspid valve regurgitation. There is no evidence of pulmonary hypertension. Great Vessels The asc aorta and aortic arch are normal in size. Venous The inferior vena cava is normal in size and collapses greater than 50% with inspiration. Pericardium/Pleural There is no evidence of pericardial effusion. Prior Study Comparison No prior study available for comparison. Recommendations, Care & Conclusions No obvious valvular pathology seen on this study. Measurements 2D Linear Measurements IVSd: 0.76 0.6-0.9/0.6-1.0 cm LVIDd: 4.68 3.9-5.3/4.2-5.9 cm LVIDd Index: 2.59 2.4-3.2/2.2-3.1 cm/m2 LVIDs: 2.64 2.0-3.6 cm LVPWd: 0.79 0.7-1.1 cm LA Diam: 3.20 2.7-3.8/3.0-4.0 cm LAIDs Index: 1.77 1.5-2.3 cm/m2 LV Mass: 145.12 67-162/88-224 g LV Mass Index: 80.17 43-95/49-115 g/m2 LVOT Diam: 2.20 3.0+(-)1.3 cm 2D Systolic Function EF 4C: 77.40 >55% EF 2C: 74.60 >55% EF BiP: 77.00 >55% Mitral Valve MV Pk E: 0.80 MV PK A: 0.72 MV Decel Time: 154.00 E/A: 1.10 E'Lateral: 8.92 E'Medial: 8.27 E/E' Med: 9.60 E/E' Lat: 8.90 PHT: 45.00 MVA PHT: 4.89 Decel Tensas: 5.17 Aortic Valve AoV Pk Armando: 1.21 AoV Mn Armando: 0.90 AoV VTI: 0.29 AoV Pk Grad: 6.00 Aov Mn Grad: 4.00 CARLA Cont.VTI: 2.94 LVOT LVOT Pk Armando: 1.03 LVOT Mn Armando: 0.73 LVOT VTI: 0.22 LVOT Pk Grad: 4.00 LVOT Mn Grad: 2.00 LVOT Diam: 2.20 LVOT Area: 3.80 Diastolic Function MV Pk E: 0.80 MV Pk A: 0.72 E/A: 1.10 E'Medial: 8.27 E/E' Med: 9.60 E' Laterial: 8.92 E/E' Lat: 8.90 Right Ventricle TAPSE (mm): 19.10 TVS' Armando: 13.80 Tricuspid Valve TR Pk Armando: 2.00 TR Pk Grad: 16.00 RA Press: 3.00 RVSP: 19.00 Great Vessels Aorta Sinus of Valsalva: 3.10 2.0-3.5 cm Ao Asc: 3.50 2.1-3.4 cm Ao Arch: 3.10 Pulmonary Valve PV Pk Armando: 1.03 Peak PV Grad: 4.00 Updated in Other Vendor System with Status of Final Arben Humphrey MD electronically signed on 10/25/2024 10:28:32 AM with status of Final
--- OUTSIDE RECORDS SUMMARY | 2024-10-23 16:15 | XMS_ITS | Clinical Summary ---
Author Organization Patient Business Ser [facility] Address [address] [place] [address] Care Team Providers Care [employer] Anchor Name Role Phone Kendra Iyer MD Primary Care Provider [phone] Allergies No known active allergies Medications hydroCHLOROthia zide (MICROZIDE) 12.5 mg capsule Take 1 Capsule by mouth daily as needed for Other (leg swelling). 01/19/2022 Active metFORMIN XR (GLUCOPHAGE-XR) 500 mg 24 hr tablet 1000mg in AM and 500 mg in PM Do not crush, chew, or split. 06/06/2024 Active rosuvastatin (CRESTOR) 10 mg tablet TAKE ONE (1) TABLET BY MOUTH EVERY DAY 90 tablet 1 09/11/2024 Active omeprazole (PriLOSEC) [address] capsule TAKE ONE (1) CAPSULE BY MOUTH EVERY DAY 90 capsule 1 09/11/2024 Active levothyroxine (SYNTHROID, LEVOTHROID) 125 mcg tablet TAKE ONE (1) TABLET BY MOUTH EVERY DAY TUESDAY THROUGH TUESDAY 72 tablet 1 09/11/2024 Active empagliflozin (JARDIANCE) 25 mg tablet Take 1 tablet (25 mg total) by mouth 1 (one) time each day. 90 tablet 1 09/24/2024 Active Active Problems Problem Noted Date Diagnosed Date Stress bladder incontinence, female 03/15/2024 Seizure disorder (CMS/HCC V24, CMS/HCC V28) 08/2023 Overview (03/15/2024): adult-onset and last about 20 years; used to be on Tegretol and was weaned off Mixed medullary-papillary ca rcinoma of thyroid ([facility] V24, [facility] V28) 03/15/2024 Overview (03/15/2024): s/p resection with nodes, local XRT, follow-up imaging for years Hypothyroidism 03/15/2024 Splenic laceration 10/06/2020 Overview (03/15/2024): Trauma 09/04/2020 Type 2 diabetes mellitus wit hout complication, without long-term current use of insulin ([facility] V24, [facility] V28) 06/24/2020 Lower extremity edema 10/18/2018 Hyperlipidemia 04/12/2018 Early menopause 04/12/2018 Cervical cancer ([facility] V24, [facility] V28) 04/18 Encounters Date Type Department Care Team Description 08/06/2024 Telephone Adult Medicine [address] [address] Kendra Iyer MD Advice Only (/) from Last 3 Months Immunizations Name Administration Dates Next Due Influenza Quadravalent, MDCK , 0.5ml, preservative free (Flucelvax) 6mo and older 04/12/2018 Influenza, Unspecified 01/03/2022,01/24/2020 Pfizer SARS-CoV-2 COVID-19, mRNA, LNP-S, preservative free 03/06/2022 Td Tetanus diptheria (Tdvax) 7yo and older 09/09 Surgical History Surgery Date Site/Laterality Comments OTHER SURGICAL HISTORY 04/2000 PROCEDURE: NC THYROIDECTOMY TOTAL/SUBTOTAL RAD NECK DISSECT OTHER SURGICAL HISTORY PROCEDURE: NC TONSILLECTOMY & ADENOIDECTOMY AGE 11/>; COMMENT: age 7 OTHER SURGICAL HISTORY PROCEDURE: NC ANES MAJOR LOWER ABDOMINAL VESSELS IVC LIGATION Medical History Medical History Date Comments Malignant neoplasm of thyroi d gland ([facility] V24, [facility] V28) DX:Malignant neoplasm of th yroid gland (HCC) Epilepsy complicating pregna ncy, childbirth, or the puerperium, unspecified as to episode of care or not applicable(649.40) DX:Epilepsy complicating pre gnancy, childbirth, or the puerperium, unspecified as to episode of care or not applicable(649.40) Other specified personal his tory presenting hazards to health(V15.89) DX:Other specifie d personal history presenting hazards to health(V15.89) Stress bladder incontinence, female DX:Stress bladder incontinence, female Seizure disorder ([facility] V2 4, [facility] V28) DX:Seizure disorder (HCC); C OMMENT: adult-onset and last about 20 years; used to be on Tegretol and was weaned off; last 2009 Hypothyroidism DX:Hypothyroidis m; COMMENT: surgical resection Mixed medullary-papillary ca rcinoma of thyroid ([facility] V24, [facility] V28) DX:Mixed medullary- papillary carcinoma of thyroid (HCC); COMMENT: s/p resection with nodes, local XRT, follow-up imaging for years Family History Medical History Relation Name Comments Schizophrenia Daughter 1 Hypertension Father Prostate cancer Father Colon cancer Maternal Grandmother Hypertension Mother Other cancer Paternal Grandmother ovarian dx age 82, 87 Relation Name Status Comments Daughter 1 Alive Daughter 2 Alive Father Alive Maternal Grandfather Maternal Grandmother Mother Alive Paternal Grandfather Paternal Grandmother Sister 1 Alive Sister 2 Alive Social History Tobacco Use Types Packs/Day Years Used Date Smoking Tobacco: Former Smokeless Tobacco: Never Alcohol Use Standard Drinks/Week Comments Yes 0 (1 standard drink = 0.6 oz pur e alcohol) Housing Instability Answer Date Recorde d Are you worried that in the next 2 months you may not have stable housing? No 06/06/2024 Food Access & Nutrition Answer Date Rec orded Do you have access to a vari ety of food including fruits and vegetables? Yes 06/06/2024 Access to Healthcare Answer Date Record ed Within the last 3 months, ho w many times did you visit the emergency department for your medical care? 1 06/06/2024 Health Literacy Answer Date Recorded How often do you need to hav e someone help you when you read instructions, pamphlets, or other written material from your doctor or pharmacy? Never 06/06/2024 Caregiver: How often do you need to have someone help you when you read instructions, pamphlets, or other written material from your doctor or pharmacy? Not on file 06/06/2024 Financial Risk Answer Date Recorded How hard is it for you to pa y for the very basics like food, housing, medical care, and air conditioning / heating? Not very hard 06/06/2024 Transportation Answer Date Recorded Has the lack of transportati on kept you from meetings, work, or from getting things needed for daily living? No Has the lack of transportati on kept you from medical appointments or from getting medications? No 06/06/2024 Social Isolation Answer Date Recorded How often do you feel lonely or isolated from th ose around you? Never 06/06/2024 Food Risk Answer Date Recorded Within the past 12 months we worried whether our food would run out before we got money to buy more. Never true 06/06/2024 Within the past 12 months th e food we bought just didn't last and we didn't have money to get more. Never true 06/06/2024 Dependent Care Answer Date Recorded Do you need help finding or paying for care for your loved ones. For example, child and adolescent psychologist or elderly care for an older adult? No 06/06/2024 Education Answer Date Recorded Do you think completing more education or training, like finishing a GED, going to college, or learning a trade, would be helpful for you? No 06/06/2024 Employment and Income Answer Date Recor ded During the last four weeks, have you been actively looking for work? No 06/06/2024 Living Situation Answer Date Recorded What is your living situation? 0 06/06/2024 Comments No Sex and Gender Information Value Date Recorded Sex Assigned at Not on file Legal Sex Female 5:41 PM EST Gender Identity Not on file Sexual Orientation Not on file Obstetrics History Last Filed Vital Signs Vital Sign Reading Time Taken Comments Blood Pressure 104/70 06/06/2024 1:53 PM EST Pulse 68 06/06/2024 1:53 PM EST Temperature 36.5 C (97.7 F) 06/06/2024 1:53 PM EST Respiratory Rate 16 06/06/2024 1:53 PM EST Oxygen Saturation - - Inhaled Oxygen Concentration - - Weight 78.9 kg (174 lb) 06/06/2024 1:53 PM EST Height 162.6 cm (5' 4 ) 06/06/2024 1:53 PM EST Body Mass Index 29.87 06/06/2024 1:53 PM EST Plan of Treatment Upcoming Encounters Date Type Department Care Team (Late st Contact Info) Description 12/25/2024 4:30 PM EDT Office Visit Adult Medicine [facility] [address] [place] [phone] Kendra Iyer MD [address] [place] [phone] Health Maintenance Due Date Last Done Comments Diabetes: Annual Foot Exam 1974 Pneumococcal Vaccine: 50+ Years (1 of 2 - PCV) 07/27/1983 Zoster Vaccines (1 of 2) 07/27/1983 HIV Screening 04/16/2021 COVID-19 Vaccine ( - season) 2023 03/06/2022, 01/13/2021, 04/21/2020, Additional history exists RSV Immunization Adult Patients (1 - Risk 60-74 years 1-dose series) 2024 Diabetes: Annual Retina Eye Exam 08/02/2024 08/03/2023 Diabetes: Annual Urine Albumin-Creatinine Ratio (uACR) 10/02/2024 10/03/2023 Breast Cancer Screening 11/15/2024 11/16/19 23, 11/11/2021, 07/21/2020, Additional history exists Influenza Vaccine (#1) 2024 , 01/31/2023, 01/26/2022, Additional history exists Diabetes: Blood Sugar Control Test (HGBA1C) 12/23/2024 06/22/2024, 10/03/2023, 10/03/2023 Depression Screening 06/06/2025 06/06/2024 Social Influencers of Health Screening 06/06/2025 06/06/2024 Diabetes: Annual GFR (Glomerular Filtration Rate) 06/22/2025 06/22/2024, 10/03/2023, 10/03/2023 Cervical Cancer Screening: HPV 07/10/2025 07/10/2020 DTaP,Tdap,and Td Vaccines (2 - Td or Tdap) 09/09/2026 09/09/2016 Colorectal Cancer Screening: Colonoscopy 10/25/2027 10/24/2017 Cholesterol Screening (Lipid Panel) 06/22/2029 06/22/2024, 10/03/2023, 10/03/2023 Hepatitis C Screening Completed 10/18/2018 HIB Vaccines Aged Out No longer eligi ble based on patient's age to complete this topic HPV Vaccines Aged Out No longer eligi ble based on patient's age to complete this topic Hepatitis A Vaccines Aged Out No long er eligible based on patient's age to complete this topic Hepatitis B Vaccines Aged Out No long er eligible based on patient's age to complete this topic IPV Vaccines Aged Out No longer eligi ble based on patient's age to complete this topic MMR Vaccines Aged Out No longer eligi ble based on patient's age to complete this topic Meningococcal ACWY Vaccine Aged Out N o longer eligible based on patient's age to complete this topic Meningococcal B Vaccine Aged Out No l onger eligible based on patient's age to complete this topic RSV Immunization Patients Under 20 months Aged Out No longer eligible based on patient's age to complete this topic Varicella Vaccines Aged Out No longer eligible based on patient's age to complete this topic Procedures Procedure Name Priority Date/Time Associated Diagnosis Comments COMPREHENSIVE METABOLIC PANEL Routine 06/22/2024 11:40 AM EDT Type 2 diabetes mellitus without complication, without long-term current use of insulin ([facility] V24, [facility] V28) HEMOGLOBIN A1C Routine 06/22/2024 11:40 AM EDT Type 2 diabetes mellitus without complication, without long-term current use of insulin (CMS/HCC V24, [facility] V28) LIPID PANEL WITH REFLEX TO DIRECT LDL Routine 06/22/2024 11:40 AM EDT Type 2 diabetes mellitus without complication, without long-term current use of insulin (CMS/HCC V24, [facility] V28) URINE ALBUMIN CREATININE RATIO Routine 10/03/2023 DIABETES EYE EXAM Routine 08/03/2023 SCREENING MAMMOGRAPHY BI 2-VIEW BREAST INC CAD Routine 11/15/2022 4:26 PM EDT Encounter for screening mammogram for malignant neoplasm of breast HPV Routine 07/10/2020 HEPATITIS C SCREENING Routine 10/18/2018 COLONOSCOPY Routine 10/24/2017 from Last 3 Months or Most Recently Relevant to Health Maintenance Results * Lipid panel with reflex to direct LDL (06/22/2024 11:40 AM EDT) Cholesterol 154 0 - 200 mg/dL LAB CHEMISTRY METHOD 06/22/2024 4:03 PM EDT [facility] Triglycerides 108 0 - 150 mg/dL LAB CHEMISTRY METHOD 06/22/2024 4:03 PM EDT [facility] HDL 56 >=40 mg/dL LAB CHEMISTRY METHOD 06/22/2024 4:03 PM EDT [facility] LDL Calculated 76 0 - 100 mg/dL LAB CHEMISTRY METHOD 06/22/2024 4:03 PM EDT [facility] VLDL Cholesterol Deni 21.6 mg/dL LAB CHEMISTRY METHOD 06/22/2024 4:03 PM EDT [facility] Non HDL Chol. (LDL+VLDL) 98 <145 mg/dL LAB CHEMISTRY METHOD 06/22/2024 4:03 PM EDT [facility] Chol/HDL Ratio 2.8 0.0 - 4.4 LAB CHEMISTRY METHOD 06/22/2024 4:03 PM EDT [facility] Blood Venous blood specimen / Unknown Venipuncture / Unknown 06/22/2024 11:40 AM EDT 06/22/2024 11:40 AM EDT us Kendra Iyer MD LAB BLOOD ORDERABLES Final Resul t [facility] [address] [place] [address], * (ABNORMAL) Hemoglobin A1c (06/22/2024 11:40 AM EDT) Pathologist [facility] Hemoglobin A1C 7.1(H) <6.5 % LAB CHEMISTRY METHOD 06/22/2024 8:22 PM [facility] Mean Bld Glu Estim. 157 mg/dL LAB CHEMISTRY METHOD 06/22/2024 8:22 PM [facility] Blood Venous blood specimen / Unknown Venipuncture / Unknown 06/22/2024 11:40 AM EDT 06/22/2024 11:40 AM EDT us Kendra Iyer MD LAB BLOOD ORDERABLES Final Resul t [facility] [address] [place] [address], [place] [phone] * (ABNORMAL) Comprehensive metabolic panel (06/22/2024 11:40 AM EDT) [facility] Sodium 142 133 - 145 mmol/L LAB CHEMISTRY METHOD 06/22/2024 4:03 PM [facility] Potassium 4.3 3.5 - 5.5 mmol/L LAB CHEMISTRY METHOD 06/22/2024 4:03 PM [facility] Chloride 108 96 - 110 mmol/L LAB CHEMISTRY METHOD 06/22/2024 4:03 PM [facility] CO2 26 21 - 32 mmol/L LAB CHEMISTRY METHOD 06/22/2024 4:03 PM [facility] Anion Gap 8 3 - 11 LAB CHEMISTRY METHOD 06/22/2024 4:03 PM [facility] Glucose 105(H) 70 - 100 mg/dL LAB CHEMISTRY METHOD 06/22/2024 4:03 PM [facility] BUN 13 5 - 25 mg/dL LAB CHEMISTRY METHOD 06/22/2024 4:03 PM [facility] Creatinine 0.95 0.50 - 1.10 mg/dL LAB CHEMISTRY METHOD 06/22/2024 4:03 PM [facility] eGFR 69 >=60 mL/min/1. 73m2 LAB CHEMISTRY METHOD 06/22/2024 4:03 PM [facility] Comment:Calculation based on the Chronic Kidney Disease Epidemiology Collaboration (CKD-EPI) equation refit without adjustment for race. BUN/Creatinine Ratio 13.7 LAB CHEMISTRY METHOD 06/22/2024 4:03 PM [facility] Calcium 8.9 8.5 - 10.5 mg/dL LAB CHEMISTRY METHOD 06/22/2024 4:03 PM [facility] AST (SGOT) 23 10 - 42 unit/L LAB CHEMISTRY METHOD 06/22/2024 4:03 PM [facility] ALT (SGPT) 37 10 - 60 unit/L LAB CHEMISTRY METHOD 06/22/2024 4:03 PM [facility] Alkaline Phosphatase 66 42 - 121 unit/L LAB CHEMISTRY METHOD 06/22/2024 4:03 PM [facility] Total Protein 7.2 6.0 - 8.0 g/dL LAB CHEMISTRY METHOD 06/22/2024 4:03 PM [facility] Albumin 3.9 3.2 - 5.0 g/dL LAB CHEMISTRY METHOD 06/22/2024 4:03 PM [facility] Total Bilirubin 0.4 0.0 - 1.4 mg/dL LAB CHEMISTRY METHOD 06/22/2024 4:03 PM [facility] Blood Venous blood specimen / Unknown Venipuncture / Unknown 06/22/2024 11:40 AM EDT 06/22/2024 11:40 AM EDT us Kendra Iyer MD LAB BLOOD ORDERABLES Final Resul t [facility] [address] [place] [address], [place] [phone] * Urine Albumin Creatinine Ratio (10/03/2023) Urine Albumin Creatinine Ratio abstracted Historical Provider HEALTH MAINTENANCE Final Result * Diabetes Eye Exam (08/03/2023) Diabetes: Annual Retina Eye Exam abstracted Historical Provider HEALTH MAINTENANCE Final Result * SCREENING MAMMOGRAPHY BI 2-VIEW BREAST INC CAD (11/15/2022 4:26 PM EDT) Anatomical Region Laterality Modality Radiographic Sanjana ging 11/11/2021 4:33 PM EDT Narrative 11/16/2022 6:03 PM EDT This is a summary report. The complete report is available in the patient's medical record. If you cannot access the medical record, please contact the sending organization for a detailed fax or copy. Exam: Screening mammogram Findings: Digital bilateral full-field screening mammography is performed with tomosynthesis and interpreted with the aid of computer-aided detection. Comparison is made with 11/11/2021 and as far back as 07/14/2018. Breast parenchyma is composed of scattered fibroglandular densities. No new suspicious mass, architectural distortion, or suspicious calcifications. Impression: No mammographic evidence of malignancy. BI-RADS 1 - negative Procedure Note Mimi Fry MD - 05/17/2023 This is a summary report. The complete report is available in thepatient's medical record. If you cannot access the medical record, pleasecontact the sending organization for a detailed fax or copy. Exam: Screening mammogram Findings: Digital bilateral full-field screening mammography is performedwith tomosynthesis and interpreted with the aid of computer-aideddetection. Comparison is made with 11/11/2021 and as far back as07/14/2018. Breast parenchyma is composed of scattered fibroglandular densities. Nonew suspicious mass, architectural distortion, or suspiciouscalcifications. Impression: No mammographic evidence of malignancy. BI-RADS 1 - negative Kt Maria MD IMG XR PROCEDURES Final Res ult * Cervical Cancer Screening: HPV (07/10/2020) Cervical Cancer Screening: HPV negative abstracted Historical Provider HEALTH MAINTENANCE Final Result * Hepatitis C Screening (10/18/2018) Hepatitis C Screening abstracted Historical Provider HEALTH MAINTENANCE Final Result * Colonoscopy (10/24/2017) Colonoscopy No interpretation , abstracted Anatomical Region Laterality Modality Other Historical Provider HEALTH MAINTENANCE Final Result from Last 3 Months or Most Recently Relevant to Health Maintenance Insurance [employer] [facility] Care Teams [employer] Anchor Relationship Specialty Start Date End Date Kendra Iyer MD [address] [place] [phone] PCP - General Internal Medicine 06/06/24
--- OUTSIDE RECORDS SUMMARY | 2024-10-23 16:15 | XMS_ITS | Patient Health Record ---
Author Organization [facility] Address [address] [place] [address] Care Team Providers Care Concrete Fence Builder Name Role Phone NHI CARRERO Primary Care Provider Nelson Taylor Jr Dong Unavailable [phone] Reason For Referral No Information Medications Medication [...] Problem Status W/U Status Risk Notes Problem 853775499 Colon cancer screening (Z12.11) Active confirmed Problem [id number] Personal history of colonic polyps (Z86.010) Active confirmed Problem [id number] Gastroesophageal reflux disease without esophagitis (K21.9) Active [...] Coverage End Date [employer] PPO [address] [place] [address] [id number] BABAK MUHAMMAD Self - patient is the insured Medical (General) History Medical History History ICD Code hyperlipidemia Hypothyroidism Surgical History Surgery Date(Month/Year) tonsillectomy thyroidectomy, complete, his tory of papillary thyroid carcinoma, 2001 partial parathyroidectomy
--- OUTSIDE RECORDS SUMMARY | 2024-10-23 16:15 | XMS_ITS | Clinical Summary ---
Author Organization [facility] [employer] & [facility] Address [address] [place] [address] Care Team Providers Care Able Bodied Tankerman Name Role Phone Pcp, No Primary Care Provider [phone] Social History Tobacco Use Types Packs/Day Years Used Date Smoking Tobacco: Never Assessed Comments Unknown Sex and Gender Information Value Date Recorded Sex Assigned at Not on file Legal Sex Female 11:08 AM EST Gender Identity Not on file Sexual Orientation Not on file Plan of Treatment Health Maintenance Due Date Last Done Comments Colorectal Cancer: COLONOSCO PY Screening every 10 yrs (or Modifier) 1964 Depression: Screening Annual ly using PHQ-2/9 in Adults 18 yrs or above (or HM Modifier)([facility]) 1982 Hepatitis C Virus Infection in Adolescents and Adults: Screening (or Modifier) ([facility]) 1982 [facility] Screening Reminder: Nancy arana for all adults ([facility]) 1982 Tobacco Smoking Cessation: i n Adults excluding Women: Behavioral and Pharmacotherapy Interventions ([facility]) 1982 DTaP/Tdap/Td Vaccines ([facility]) (1 - Tdap) 07/27/1983 Cervical Cancer Screenin 1-65 yrs of age (or Modifier) 1985 Cervical Cancer Screening: P ap every 3 yrs pts age 21-65 1985 Cervical Cancer: Pap Screeni ng with Modifier timing ([facility]) 1985 Cervical Cancer: hrHPV alone or with cotesting Pap for Pts 30-65yrs screening every 5yrs ([facility]) 1985 Colorectal Cancer Screening 45 -75 Yrs (or HM Modifier ) 2009 Colorectal Cancer: FLEXIBLE SIGMOIDOSCOPY Screening every 5 yrs 2009 Colorectal Cancer: Fecal Imm unochemical Test (FIT) Annually [facility] 2009 Colorectal Cancer: High-sens itivity gFOBT Screening Annually [facility] 2009 Colorectal Cancer: Stool Col oguard Screening every 3 yrs 2009 Colorectal Cancer:CT Colonography Screening every 5 yr s 2009 Breast Cancer: Screening Nancy yasmeen age 50-74 yrs (or HM Modifier)([facility]) 2014 Pneumococcal Vaccination Scr eening: Patients 50+ yrs of age ([facility]) (1 of 1 - PCV) 2014 Zoster/Shingles Vaccine Seri es Screening: Adults aged 18+ yrs (or HM Modifiers)([facility]) (1 of 2) 2014 COVID-19 Vaccine Screening: Initial Series and Booster Status ([facility]) (2023- season) 2023 Flu Vaccination: Yearly for ages 18mos through 64 years (or Modifier)([facility]) 11/09/2024 RSV Vaccines (1 - 1-dose 75+ series) 07/27/2039 Medical Devices Not on file Care Teams Able Bodied Tankerman Relationship Specialty Start Date End Date Pcp, No PCP - General Family Medicine 03/02/21
== END ==
LOC: HO.CARD 14:53
PROVIDERS: PCP Internal Medicine; Visit Provider Internal Medicine Cardiovascular Disease
DX: R06.02 Shortness of breath (principal)
CPT/HCPCS: 93306

== ENCOUNTER → 2024-10-23 14:55 | Outpatient (BNV) | payer OTHER, SELFPAY | PROVIDERS: PCP Internal Medicine; Visit Provider Internal Medicine | DX: I51.89 Other ill-defined heart diseases (principal) | CPT/HCPCS: 93306 ==

== ENCOUNTER → 2024-11-02 08:25 | Outpatient (REF) | payer OTHER, SELFPAY ==
--- NOTE | ~2024-11-02 | NM_ITS ---
EXERCISE MYOCARDIAL PERFUSION STUDY INDICATION: Chest pain to evaluate for myocardial ischemia TECHNIQUE: The patient was brought in for an exercise perfusion study on 11/02/2024. Patient performed exercise as per Carlos protocol and was injected 25 mCi of sestamibi once target heart rate was achieved. Images were obtained using the SPECT gamma camera interlaced with the gating device. Images were obtained in supine position. Resting perfusion study was performed on 11/06/2024. Patient was administered 25 mCi of sestamibi intravenously at rest. Images were then obtained in supine position. Images obtained without without CT attenuation. Total DLP 79 mGy-cm. Images were processed with the software and compared side to side in short axis, horizontal long axis and vertical long axis views. FINDINGS: Raw images were reviewed The stress perfusion study showed both attenuated as well as nonattenuated corrected images show normal uptake of radiotracer in all segments of the LV myocardium. The gated study shows normal LV systolic function with calculated LVEF of 71%. LV cavity is normal in size. The gated study shows normal systolic wall thickening and contraction of segments. Resting study shows both attenuated as well as nonattenuated corrected images show normal uptake of radiotracer in all segments of the LV myocardium. Gating at rest reveals normal systolic wall motion with ejection fraction at greater than 60%. The findings are consistent with normal myocardial perfusion. NM/NM cardiolite stress test IMPRESSION: 1. Myocardial perfusion imaging study shows normal myocardial perfusion. 2. Gated LVEF is 71%. 3. Transient ischemic dilatation not present. EKG revealed negative for ischemia. Electronically signed by: Garret Ramos MD 11/06/2024 04:16 PM EDT
--- NOTE | 2024-11-02 08:27 | CA_ITS ---
Acquisition Time: 2024-11-02 08:45:22 Total Exercise Time: 00:09:10 Test Indications: CHEST PAIN, SOB Medications: Protocol: SEAMUS Max HR: 136 BPM 85% of Pred: 160 BPM Max BP: 174/84 mmHG Max Work Load: 10.1 METS Exercise stress test with exercise 9 mins 10 secs of Seamus Protocol, acheiving 86% MPHR, with reports of SOB and leg weakness, no chest pain, with isolated PVCs, with normotensive response to exercise. Without EKG changes meeting criteria for ischemia. In recovery, breathing returned to baseline and leg weakness improved. Nuclear images pending. Test reviewed with Dr. Martinez. Referred By: Garret Ramos Electronically Signed By: Vito Cyr
--- OUTSIDE RECORDS SUMMARY | 2024-11-02 08:36 | XMS_ITS | Clinical Summary ---
Author Organization [facility] [employer] & [facility] Address [address] [place] [address] Care Team Providers Care Food Vendor Name Role Phone Pcp, No Primary Care Provider [phone] Social History Tobacco Use Types Packs/Day Years [...] Adults 18 yrs or above (or HM Modifier)([facility]) 1982 Hepatitis C Virus Infection in Adolescents and Adults: Screening (or Modifier) ([facility]) 1982 [facility] Screening Reminder: Nancy arana for all adults ([facility]) 1982 Tobacco Smoking Cessation: i n Adults excluding Women: Behavioral and Pharmacotherapy Interventions ([facility]) 1982 DTaP/Tdap/Td Vaccines ([facility]) (1 - Tdap) 07/27/1983 Cervical Cancer Screenin 1-65 yrs of age (or Modifier) 1985 Cervical Cancer Screening: P ap every 3 yrs pts age 21-65 1985 Cervical Cancer: Pap Screeni ng with Modifier timing ([facility]) 1985 Cervical Cancer: hrHPV alone or with cotesting Pap for Pts 30-65yrs screening every 5yrs ([facility]) 1985 Colorectal Cancer Screening 45 -75 Yrs (or HM Modifier ) 2009 Colorectal Cancer: FLEXIBLE SIGMOIDOSCOPY Screening every 5 yrs 2009 Colorectal Cancer: Fecal Imm unochemical Test (FIT) Annually [facility] 2009 Colorectal Cancer: High-sens itivity gFOBT Screening Annually [facility] 2009 Colorectal Cancer: Stool Col oguard Screening every 3 yrs 2009 Colorectal Cancer:CT Colonography Screening every 5 yr s 2009 Breast Cancer: Screening Nancy yasmeen age 50-74 yrs (or HM Modifier)([facility]) 2014 Pneumococcal Vaccination Scr eening: Patients 50+ yrs of age ([facility]) (1 of 1 - PCV) 2014 Zoster/Shingles Vaccine Seri es Screening: Adults aged 18+ yrs (or HM Modifiers)([facility]) (1 of 2) 2014 COVID-19 Vaccine Screening: Initial Series and Booster Status ([facility]) (2023- season) 2023 Flu Vaccination: Yearly for ages 18mos through 64 years (or Modifier)([facility]) 11/09/2024 RSV Vaccines (1 - 1-dose 75+ series) 07/27/2039 Medical Devices Not on file Care Teams Food Vendor Relationship Specialty Start Date End Date Pcp, No PCP - General Family Medicine 03/02/21
--- OUTSIDE RECORDS SUMMARY | 2024-11-02 08:36 | XMS_ITS | Patient Health Record ---
Author Organization [facility] Address [address] [place] [address] Care Team Providers Care Manufacturing Sr Engineer Name Role Phone NHI CARRERO Primary Care [...] Problem Status W/U Status Risk Notes Problem [id number] Colon cancer screening (Z12.11) Active confirmed Problem [id number] Personal history of colonic polyps (Z86.010) Active confirmed Problem [id number] Gastroesophageal reflux disease without esophagitis (K21.9) Active [...] Coverage End Date [employer] PPO [address] [place] [address] [id number] BABAK MUHAMMAD Self - patient is the insured Medical (General) History Medical History History ICD Code hyperlipidemia Hypothyroidism Surgical History Surgery Date(Month/Year) tonsillectomy thyroidectomy, complete, his tory of papillary thyroid carcinoma, 2001 partial parathyroidectomy
--- OUTSIDE RECORDS SUMMARY | 2024-11-02 08:36 | XMS_ITS | Clinical Summary ---
Author Organization Patient Business Ser [facility] Address [address] [place] [address] Care Team Providers Care Toggle Press Folder And Feeder Name Role Phone Kendra Iyer MD Primary Care Provider [phone] Allergies No known active allergies Medications hydroCHLOROthia [...] off Mixed medullary-papillary ca rcinoma of thyroid ([facility] V24, [facility] V28) 03/15/2024 Overview (03/15/2024): s/p resection with nodes, local XRT, follow-up imaging for years Hypothyroidism 03/15/2024 Splenic laceration 10/06/2020 Overview (03/15/2024): Trauma 09/04/2020 Type 2 diabetes mellitus wit hout complication, without long-term current use of insulin ([facility] V24, [facility] V28) 06/24/2020 Lower extremity edema 10/18/2018 Hyperlipidemia 04/12/2018 Early menopause 04/12/2018 Cervical cancer ([facility] V24, [facility] V28) 04/18 Encounters Date Type Department Care Team Description 08/06/2024 Telephone Adult Medicine [address] [address] Kendra Iyer MD Advice Only (/) from Last 3 Months Immunizations Name Administration Dates Next Due Influenza Quadravalent, MDCK , 0.5ml, preservative free (Flucelvax) 6mo and older 04/12/2018 Influenza, Unspecified 01/03/2022,01/24/2020 Pfizer SARS-CoV-2 COVID-19, mRNA, LNP-S, preservative free 03/06/2022 Td Tetanus diptheria (Tdvax) 7yo and older 09/09 Surgical History Surgery Date Site/Laterality Comments OTHER SURGICAL HISTORY 04/2000 PROCEDURE: [place] THYROIDECTOMY TOTAL/SUBTOTAL RAD NECK DISSECT OTHER SURGICAL HISTORY PROCEDURE: [place] TONSILLECTOMY & ADENOIDECTOMY AGE 11/>; COMMENT: age 7 OTHER SURGICAL HISTORY PROCEDURE: [place] ANES MAJOR LOWER ABDOMINAL VESSELS IVC LIGATION Medical History Medical History Date Comments Malignant neoplasm of thyroi d gland ([facility] V24, [facility] V28) DX:Malignant neoplasm of th yroid gland [...] female DX:Stress bladder incontinence, female Seizure disorder ([facility] V2 4, [facility] V28) DX:Seizure disorder (HCC); C OMMENT: adult-onset and last about 20 years; used to be on Tegretol and was weaned off; last 2009 Hypothyroidism DX:Hypothyroidis m; COMMENT: surgical resection Mixed medullary-papillary ca rcinoma of thyroid ([facility] V24, [facility] V28) DX:Mixed medullary- papillary carcinoma of thyroid [...] for your loved ones. For example, child psychiatrist or elderly care for an older adult? [...] 4:30 PM EDT Office Visit Adult Medicine [address] [id number] Kendra Iyer MD [address] [place] [id number] Health Maintenance Due Date Last Done Comments [...] Control Test (HGBA1C) 12/23/2024 06/22/2024, 10/03/2023, 10/03/2023 Social Influencers of Health Screening 06/06/2025 06/06/2024 Diabetes: Annual GFR (Glomerular Filtration Rate) 06/22/2025 06/22/2024, 10/03/2023, 10/03/2023 Cervical Cancer Screening: HPV 07/10/2025 07/10/2020 DTaP,Tdap,and Td Vaccines (2 - Td or Tdap) 09/09/2026 09/09/2016 Colorectal Cancer Screening: Colonoscopy 10/25/2027 10/24/2017 Cholesterol Screening (Lipid Panel) 06/22/2029 06/22/2024, 10/03/2023, 10/03/2023 Hepatitis C Screening Completed 10/18/2018 Depression Screening Completed 06/06/2024 HIB Vaccines Aged Out No longer eligi [...] complication, without long-term current use of insulin ([facility] V24, [facility] V28) HEMOGLOBIN A1C Routine 06/22/2024 11:40 AM EDT Type 2 diabetes mellitus without complication, without long-term current use of insulin ([facility] V24, [facility] V28) LIPID PANEL WITH REFLEX TO DIRECT LDL Routine 06/22/2024 11:40 AM EDT Type 2 diabetes mellitus without complication, without long-term current use of insulin ([facility] V24, [facility] V28) URINE ALBUMIN CREATININE RATIO Routine 10/03/2023 [...] LAB CHEMISTRY METHOD 06/22/2024 4:03 PM EDT [facility] Triglycerides 108 0 - 150 mg/dL LAB CHEMISTRY METHOD 06/22/2024 4:03 PM EDT [facility] HDL 56 >=40 mg/dL LAB CHEMISTRY METHOD 06/22/2024 4:03 PM EDT [facility] LDL Calculated 76 0 - 100 mg/dL LAB CHEMISTRY METHOD 06/22/2024 4:03 PM EDT [facility] VLDL Cholesterol Deni 21.6 mg/dL LAB CHEMISTRY METHOD 06/22/2024 4:03 PM EDT [facility] Non HDL Chol. (LDL+VLDL) 98 <145 mg/dL LAB CHEMISTRY METHOD 06/22/2024 4:03 PM EDT [facility] Chol/HDL Ratio 2.8 0.0 - 4.4 LAB CHEMISTRY METHOD 06/22/2024 4:03 PM EDT [facility] Blood Venous blood specimen / Unknown Venipuncture / Unknown 06/22/2024 11:40 AM EDT 06/22/2024 11:40 AM EDT us Kendra Iyer MD LAB BLOOD ORDERABLES Final Resul t [facility] [address] [place] [address], * (ABNORMAL) Hemoglobin A1c (06/22/2024 11:40 AM EDT) Pathologist [facility] Hemoglobin A1C 7.1(H) <6.5 % LAB CHEMISTRY METHOD 06/22/2024 8:22 PM [facility] Mean Bld Glu Estim. 157 mg/dL LAB CHEMISTRY METHOD 06/22/2024 8:22 PM [facility] Blood Venous blood specimen / Unknown Venipuncture / Unknown 06/22/2024 11:40 AM EDT 06/22/2024 11:40 AM EDT us Kendra Iyer MD LAB BLOOD ORDERABLES Final Resul t [facility] [address] [place] [address], [place] [phone] * (ABNORMAL) Comprehensive metabolic panel (06/22/2024 11:40 AM EDT) [facility] Sodium 142 133 - 145 mmol/L LAB CHEMISTRY METHOD 06/22/2024 4:03 PM [facility] Potassium 4.3 3.5 - 5.5 mmol/L LAB CHEMISTRY METHOD 06/22/2024 4:03 PM [facility] Chloride 108 96 - 110 mmol/L LAB CHEMISTRY METHOD 06/22/2024 4:03 PM [facility] CO2 26 21 - 32 mmol/L LAB CHEMISTRY METHOD 06/22/2024 4:03 PM [facility] Anion Gap 8 3 - 11 LAB CHEMISTRY METHOD 06/22/2024 4:03 PM [facility] Glucose 105(H) 70 - 100 mg/dL LAB CHEMISTRY METHOD 06/22/2024 4:03 PM [facility] BUN 13 5 - 25 mg/dL LAB CHEMISTRY METHOD 06/22/2024 4:03 PM [facility] Creatinine 0.95 0.50 - 1.10 mg/dL LAB CHEMISTRY METHOD 06/22/2024 4:03 PM [facility] eGFR 69 >=60 mL/min/1. 73m2 LAB CHEMISTRY METHOD 06/22/2024 4:03 PM [facility] Comment:Calculation based on the Chronic Kidney Disease Epidemiology Collaboration (CKD-EPI) equation refit without adjustment for race. BUN/Creatinine Ratio 13.7 LAB CHEMISTRY METHOD 06/22/2024 4:03 PM [facility] Calcium 8.9 8.5 - 10.5 mg/dL LAB CHEMISTRY METHOD 06/22/2024 4:03 PM [facility] AST (SGOT) 23 10 - 42 unit/L LAB CHEMISTRY METHOD 06/22/2024 4:03 PM [facility] ALT (SGPT) 37 10 - 60 unit/L LAB CHEMISTRY METHOD 06/22/2024 4:03 PM [facility] Alkaline Phosphatase 66 42 - 121 unit/L LAB CHEMISTRY METHOD 06/22/2024 4:03 PM [facility] Total Protein 7.2 6.0 - 8.0 g/dL LAB CHEMISTRY METHOD 06/22/2024 4:03 PM [facility] Albumin 3.9 3.2 - 5.0 g/dL LAB CHEMISTRY METHOD 06/22/2024 4:03 PM [facility] Total Bilirubin 0.4 0.0 - 1.4 mg/dL LAB CHEMISTRY METHOD 06/22/2024 4:03 PM [facility] Blood Venous blood specimen / Unknown Venipuncture / Unknown 06/22/2024 11:40 AM EDT 06/22/2024 11:40 AM EDT us Kendra Iyer MD LAB BLOOD ORDERABLES Final Resul t [facility] [address] [place] [address], [place] [phone] * Urine Albumin Creatinine Ratio (10/03/2023) Urine [...] Most Recently Relevant to Health Maintenance Insurance [employer] [facility] Care Teams Toggle Press Folder And Feeder Relationship Specialty Start Date End Date Kendra Iyer MD [address] [place] [phone] PCP - General Internal Medicine 06/06/24
--- OUTSIDE RECORDS SUMMARY | 2024-11-02 08:36 | XMS_ITS ---
Author Name [facility] Organization Unknown Care Team Organization Name Specialty Phone Email Start Date [facility] 03/23/2023 024 [facility] Jaylon Kendra Primary Care 12/16/2022 024 [facility] Termed, PROVIDER Primary Care 04/19/202211/09 [facility] Termed, PROVIDER Primary Care 02/16/202211/09
== END ==
LOC: HO.CARD 08:25
PROVIDERS: PCP Internal Medicine; Visit Provider Internal Medicine Cardiovascular Disease
DX: R07.9 Chest pain, unspecified (principal); R06.02 Shortness of breath
CPT/HCPCS: 78452; 93017; A9500

== ENCOUNTER → 2024-11-02 08:27 | Outpatient (BNV) | payer OTHER, SELFPAY | PROVIDERS: PCP Internal Medicine | DX: I49.3 Ventricular premature depolarization (principal); R06.02 Shortness of breath | CPT/HCPCS: 78452; 93016; 93018 ==

== ENCOUNTER 2024-12-25 15:15 | Outpatient (AMB) | payer OTHER, SELFPAY ==
--- NOTE | 2024-12-25 15:33 | A.OFFVIS_ITS ---
Vital Signs 12/25/24 15:34 Height 5 ft 4 in Weight 176 lb 5.917 oz BMI 30.3 BP 106/70 Blood Pressure Location Lt brachial Position Sitting Pulse 71 Intake Visit Reasons: 3 mth f/up mibi/ echo Intake Note: 3 month follow-up after echo and mibi Filtration Operator Required: No Allergies No Known Allergies Allergy (Verified 04/20/24 13:50) Medication List - Last Reconciled 12/25/24 by Garret Ramos MD cholecalciferol (vitamin D3) (Vitamin D3) 25 mcg PO DAILY empagliflozin (Jardiance) 25 mg PO DAILY erythromycin 1 appl ophthalmic-Left DAILY 10 days levothyroxine (Euthyrox) 125 mcg PO DAILY metformin ER 500 mg PO TID omeprazole 20 mg PO DAILY rosuvastatin 40 mg PO DAILY HPI Comments Details: Vicky comes for follow-up after recent testing. Echocardiogram was within normal limits. Her myocardial perfusion imaging was also showing no evidence of ischemia. The suggest no significant structural heart issues. She says symptoms of PVCs have significantly improved and she occasionally feels a skipped heartbeats. However she says when she climbs up a flight of stairs or walking uphill she feels wobbly in his legs and worried about circulation issues in his legs. She has not had a coronary calcium score done as yet. Denies any prolonged palpitations, lightheadedness, syncope. [facility] Medical History Spleen laceration Back pain Cervical dysplasia GERD (gastroesophageal reflux disease) Anemia Hiatal hernia Seizures Hx of papillary thyroid carcinoma Hypothyroid Elevated cholesterol Surgical History H/O varicose vein ligation H/O colonoscopy Hx of parathyroidectomy Hx of total thyroidectomy Hx of tonsillectomy Family History Father Prostate cancer Mother Alzheimer dementia Social History Household Members: Spouse Are you a primary geriatric care manager to a significant other at home: No Do you presently have visiting nurse or other home services: No Alcohol intake: current Alcohol intake frequency: a few times a month Alcohol type: wine Patient Tobacco Use Status: Never used Tobacco Review of Systems Const Denies chills, Denies fatigue, Denies fever(s), Denies frequent falls, Denies weakness, Denies weight gain and Denies weight loss ENT Denies dizziness Card Denies chest pain, Denies leg edema, Denies lightheadedness, Denies palpitations, Denies dyspnea, Denies dyspnea on exertion, Denies orthopnea and Denies other (loss of consciousness) Resp Denies cough, Denies dyspnea and Denies dyspnea on exertion GI Denies hematochezia and Denies change in stool character Musc Denies abnormal gait, Denies muscle weakness, Denies numbness, Denies radiating pain into limb and Denies tingling Neuro Denies abnormal gait, Denies dizziness, Denies frequent falls, Denies numbness, Denies tingling and Denies weakness Endo Denies fatigue and Denies palpitations Physical Exam Vital Signs: Last Vital Signs Pulse 71 12/25/24 15:34 BP 106/70 12/25/24 15:34 BMI result Body Mass Index 30.3 Const General: cooperative, comfortable, no acute distress, alert, awake, Physically active and well groomed Nutritional Appearance: overweight Orientation/consciousness: patient oriented x3 Limitations: no limitations HEENT Head: Yes normocephalic and Yes atraumatic Neck Neck: Yes trachea midline, Yes supple and Yes no JVD Resp Effort & Inspection: normal respiratory effort Auscultation: clear to auscultation bilaterally Cardio Jugular venous distension: no JVD Palpation: normal PMI Rate: regular rate Rhythm: regular rhythm Heart sounds: S1 normal heart sound present, S2 normal heart sound present, no click, no gallops, no murmurs and no rubs GI Auscultation: normal bowel sounds Skin General skin exam: no rashes or lesions noted Neuro General: patient oriented x3 and no focal motor deficits Extrem General: Yes no clubbing, cyanosis or edema Psych Appearance: grossly normal Assessment & Plan Assessment & Plan (1) Short of breath on exertion: Code(s): R06.02 - Shortness of breath Category: Medical Plan: Shortness of breath on exertion in this middle-aged woman with negative workup with normal structure of the heart with normal myocardial perfusion imaging and normal echocardiogram without any valvular abnormalities. This overall carries good prognosis in his shortness of breath is not explained by her cardiac abnormalities. Can pursue pulmonary function testing. I would suggest her to have a coronary calcium score for further risk stratification perspective to more aggressively manage if she has significant atherosclerotic burden. She is complaining of leg discomfort/wobbliness with walking and she has excellent distal pulses as well as femoral pulses unlikely this represents related to peripheral vascular disease and this was discussed with her. (2) PVCs (premature ventricular contractions): Code(s): I49.3 - Ventricular premature depolarization Category: Medical Plan: PVCs burden have suppressed and now she has normal structure of the heart has demonstrated by normal echo and stress test. Good prognosis with this was discussed. Would avoid pharmacotherapy. Avoidance of stimulants was discussed. Stress mitigation strategies were discussed. Will follow up in the clinic if need be. Thank you for allowing me to partake in her care Coding Level of Care Code Est Pt Level 4 (64739) Complex EM visit Add On G2211 Diagnoses Short of breath on exertion R06.02 PVCs (premature ventricular contractions) I49.3
[2024-12-25 15:34] VITALS: BP 106/70; PULSE 71; BMI 30.3
--- OUTSIDE RECORDS SUMMARY | 2024-12-25 16:30 | XMS_ITS | Encounter Summary ---
Author Organization [facility] Address [address] [place] [address] Care Team Providers Care .Net Programmer Name Role Phone Kendra Iyer MD Primary Care Provider [phone] Reason for Referral * Imaging (Routine) - Authorized Specialty Diagnoses / Procedures Referred By Selene portillo Referred To Contact Radiology Diagnoses Screening mammogram for breast cancer Procedures MG Mammo Digital Screening bilat Kendra Iyer MD [address] [place] [address] Phone: tel: fax: External Performed Referral ID Status Reason Start Date Expiration Date V isits Requested Visits Authorized [id number] Authorized 12/25/2024 12/25/2025 1 1 * Consultation (Routine) - Pending Review Specialty Diagnoses / Procedures Referred By Selene portillo Referred To Contact Gynecology Diagnoses Screening for cervical cancer Kendra Iyer MD [address] [place] [address] Phone: tel: fax: Referral ID Status Reason Start Date Expiration Date Visits Requested Visits Authorized [id number] Pending Review Specialty Services Required 12/25/2024 12/25/2025 1 1 Reason for Visit * Reason Comments Follow-up Encounter Details Date Type Department Care Team (Late st Contact Info) Description 12/25/2024 4:30 PM EDT Office Visit Adult Medicine [address] [phone] Kendra Iyer MD [address] [place], [place] Type 2 diabetes mellitus without complication, without long-term current use of insulin (CMS/[facility] V24, CMS/HCC V28) (Primary Dx); Acquired hypothyroidism; Mixed hyperlipidemia; Screening for cervical cancer; Screening mammogram for breast cancer Social History Tobacco Use Types Packs/Day Years Used Date Smoking Tobacco: Former Smokeless Tobacco: Never Tobacco Cessation:Counseling Given: Not Answered Alcohol Use Standard Drinks/Week Comments Yes 0 [...] for your loved ones. For example, child caregiver or elderly care for an older adult? [...] on file Sexual Orientation Not on file documented as of this encounter Last Filed Vital Signs Vital Sign Reading Time Taken Comments Blood Pressure 104/78 12/25/2024 4:40 PM EDT Pulse 72 12/25/2024 4:40 PM EDT Temperature 36.8 C (98.2 F) 12/25/2024 4:40 PM EDT Respiratory Rate 14 12/25/2024 4:40 PM EDT Oxygen Saturation 99% 12/25/2024 4:40 PM EDT Inhaled Oxygen Concentration - - Weight 80.7 kg (178 lb) 12/25/2024 4:40 PM EDT Height 162.6 cm (5' 4 ) 12/25/2024 4:40 PM EDT Body Mass Index 30.55 12/25/2024 4:40 PM EDT documented in this encounter Ordered Prescriptions Prescription Sig Dispense Quantity Refills Last Filled Start Date End Date metFORMIN XR (GLUCOPHAGE-XR) 500 mg 24 hr tablet 1000mg in AM and 500 mg in PM Do not crush, chew, or split. 270 tablet 1 12/25/2024 levothyroxine (SYNTHROID, LEVOTHROID) 125 mcg tablet TAKE ONE (1) TABLET BY MOUTH EVERY DAY 90 tablet 1 12/25/2024 documented in this encounter Plan of Treatment Scheduled Orders Name Type Priority Associated Diagnoses Orde r Schedule Comprehensive metabolic panel Lab Routine Mixed hyperlipidemia Expected: 12/25/2024, Expires: 06/24/2025 Lipid panel with reflex to direct LDL Lab Routine Mixed hyperlipidemia Expected: 12/25/2024, Expires: 12/25/2025 Thyroid stimulating hormone with reflex to free t4 and free t3 Lab Routine Acquired hypothyroidism Expected: 12/25/2024, Expires: 06/24/2025 CBC and differential Lab Routine Type 2 diabetes mellitus without complication, without long-term current use of insulin [place] [place], [facility] V28) Expected: 12/25/2024, Expires: 06/24/2025 Hemoglobin A1c Lab Routine Type 2 diabetes mellitus without complication, without long-term current use of insulin ([facility] [place], [facility] V28) Expected: 12/25/2024, Expires: 06/24/2025 Microalbumin creatinine urine ratio Lab Routine Type 2 diabetes mellitus without complication, without long-term current use of insulin ([facility] [place], [facility] V28) Expected: 12/25/2024, Expires: 06/24/2025 MG Mammo Digital Screening bilat Imaging Routine Screening mammogram for breast cancer Expected: 12/25/2024, Expires: 12/25/2025 Scheduled Referrals Name Type Priority Associated Diagnoses Order Schedule Ambulatory referral to Gynecology Outpatient Referral Routine Screening for cervical cancer 1 Occurrences starting 12/25/2024 until 12/25/2025 documented as of this encounter Visit Diagnoses Diagnosis Type 2 diabetes mellitus without complication, without long-term current use of insulin ([facility] [place], [facility] V28)- Primary Acquired hypothyroidism Unspecified hypothyroidism Mixed hyperlipidemia Screening for cervical cancer Screening for malignant neoplasm of the cervix Screening mammogram for breast cancer documented in this encounter Discontinued Medications Medication Sig Discontinue Reason Start Date End Da te metFORMIN XR (GLUCOPHAGE-XR) 500 mg 24 hr tablet 1000mg in AM and 500 mg in PM Do not crush, chew, or split. Reorder 06/06/2024 12/25/2024 levothyroxine (SYNTHROID, LEVOTHROID) 125 mcg tablet TAKE ONE (1) TABLET BY MOUTH EVERY DAY TUESDAY THROUGH TUESDAY Reorder 09/11/2024 12/25/2024 documented as of this encounter Additional Health Concerns Assessment Noted Time PHQ-9 Depression Total Score: 0 06/06/19 12:18 PM EST documented as of this encounter Care Teams .Net Programmer Relationship Specialty Start Date End Date Kendra Iyer MD [address] [place] [phone] PCP - General Internal Medicine 06/06/24 documented as of this encounter
--- OUTSIDE RECORDS SUMMARY | 2024-12-25 18:44 | XMS_ITS | Clinical Summary ---
Author Organization [facility] [employer] [facility] Address [address] [place] [address] Care Team Providers Care Aircraft Systems Technician Name Role Phone Pcp, No Primary Care Provider [phone] Social History Tobacco Use Types Packs/Day Years [...] 18 yrs or above (or HM Modifier)([facility]) 1982 Hepatitis C Virus Infection in Adolescents and Adults: Screening (or Modifier) ([facility]) 1982 [facility] Screening Reminder: Nancy arana for all adults ([facility]) 1982 Tobacco Smoking Cessation: i n Adults excluding Women: Behavioral and Pharmacotherapy Interventions ([facility]) 1982 DTaP/Tdap/Td Vaccines ([facility]) (1 - Tdap) 07/27/1983 Cervical Cancer Screenin 1-65 yrs of age (or Modifier) 1985 Cervical Cancer Screening: P ap every 3 yrs pts age 21-65 1985 Cervical Cancer: Pap Screeni ng with Modifier timing ([facility]) 1985 Cervical Cancer: hrHPV alone or with cotesting Pap for Pts 30-65yrs screening every 5yrs ([facility]) 1985 Colorectal Cancer Screening 45 -75 Yrs (or HM Modifier ) 2009 Colorectal Cancer: FLEXIBLE SIGMOIDOSCOPY Screening every 5 yrs 2009 Colorectal Cancer: Fecal Imm unochemical Test (FIT) Annually [facility] 2009 Colorectal Cancer: High-sens itivity gFOBT Screening Annually [facility] 2009 Colorectal Cancer: Stool Col oguard Screening every 3 yrs 2009 Colorectal Cancer:CT Colonography Screening every 5 yr s 2009 Breast Cancer: Screening Nancy yasmeen age 50-74 yrs (or HM Modifier)([facility]) 2014 Pneumococcal Vaccination Scr eening: Patients 50+ yrs of age ([facility]) (1 of 1 - PCV) 2014 Zoster/Shingles Vaccine Seri es Screening: Adults aged 18+ yrs (or HM Modifiers)([facility]) (1 of 2) 2014 Flu Vaccination: Yearly for ages 18mos through 64 years (or Modifier)([facility]) 11/09/2024 RSV Vaccines (1 - 1-dose 75+ series) 07/27/2039 [employer] Not on file Care Teams Aircraft Systems Technician Relationship Specialty Start Date End Date Pcp, No PCP - General Family Medicine 03/02/21
--- OUTSIDE RECORDS SUMMARY | 2024-12-25 18:44 | XMS_ITS | Patient Health Record ---
Author Organization [facility] Address [address] [place] [address] Care Team Providers Care Blasting Coal Miner Name Role Phone NHI CARRERO Primary Care [...] Problem Status W/U Status Risk Notes Problem [id number] Colon cancer screening (Z12.11) Active confirmed Problem [id number] Personal history of colonic polyps (Z86.010) Active confirmed Problem [id number] Gastroesophageal reflux disease without esophagitis (K21.9) Active [...] Coverage End Date [employer] PPO [address] [place] [phone] [id number] BABAK MUHAMMAD Self - patient is the insured Medical (General) History Medical History History ICD Code hyperlipidemia Hypothyroidism Surgical History Surgery Date(Month/Year) tonsillectomy thyroidectomy, complete, his tory of papillary thyroid carcinoma, 2001 partial parathyroidectomy
--- OUTSIDE RECORDS SUMMARY | 2024-12-25 18:44 | XMS_ITS | Clinical Summary ---
Author Organization Patient Business Ser [facility] [place] Address [address] [place] [address] Care Team Providers Care Electrical Prospecting Operator Name Role Phone Kendra Iyer MD Primary Care Provider [phone] Allergies No known active allergies Medications hydroCHLOROthia zide (MICROZIDE) 12.5 mg capsule Take 1 Capsule by mouth daily as needed for Other (leg swelling). 2 Active rosuvastatin (CRESTOR) 10 mg tablet TAKE ONE (1) TABLET BY MOUTH EVERY DAY 90 tablet 1 5 Active omeprazole (PriLOSEC) [address] capsule TAKE ONE (1) CAPSULE BY MOUTH EVERY DAY 90 capsule 1 5 Active empagliflozin (JARDIANCE) 25 mg tablet Take 1 tablet (25 mg total) by mouth 1 (one) time each day. 90 tablet 1 5 Active levothyroxine (SYNTHROID, LEVOTHROID) 125 mcg tablet TAKE ONE (1) TABLET BY MOUTH EVERY DAY 90 tablet 1 5 Active metFORMIN XR (GLUCOPHAGE-XR) 500 mg 24 hr tablet 1000mg in AM and 500 mg in PM Do not crush, chew, or split. 270 tablet 1 5 Active metFORMIN XR (GLUCOPHAGE-XR) 500 mg 24 hr tablet 1000mg in AM and 500 mg in PM Do not crush, chew, or split. 5 12/26/19 25 Discontinu ed(Reorder ) levothyroxine (SYNTHROID, LEVOTHROID) 125 mcg tablet TAKE ONE (1) TABLET BY MOUTH EVERY DAY TUESDAY THROUGH TUESDAY 72 tablet 1 5 12/26/19 25 Discontinu ed(Reorder ) Active Problems Problem Noted Date Diagnosed Date Stress bladder incontinence, female 03/15/2024 Seizure disorder ([facility] V24, [facility] V28) 1208/2023 Overview (03/15/2024): adult-onset and last about 20 years; used to be on Tegretol and was weaned off Mixed medullary-papillary ca rcinoma of thyroid ([facility] V24, [facility] V28) 03/15/2024 Overview (03/15/2024): s/p resection with nodes, local XRT, follow-up imaging for years Hypothyroidism 03/15/2024 Splenic laceration 10/06/2020 Overview (03/15/2024): Trauma 09/04/2020 Type 2 diabetes mellitus wit hout complication, without long-term current use of insulin ([facility] V24, [facility] V28) 06/24/2020 Lower extremity edema 10/18/2018 Hyperlipidemia 04/12/2018 Early menopause 04/12/2018 Cervical cancer ([facility] V24, [facility] V28) 04/18 Encounters Date Type Department Care Team Description 12/25/2024 4:30 PM EDT Office Visit Adult Medicine [address] [phone] Kendra Iyer MD Type 2 diabetes mellitus without complication, without long-term current use of insulin ([facility] V24, [facility] V28) (Primary Dx); Acquired hypothyroidism; Mixed hyperlipidemia; Screening for cervical cancer; Screening mammogram for breast cancer from Last 3 Months Immunizations Name Administration Dates Next Due Influenza Quadravalent, MDCK , 0.5ml, preservative free (Flucelvax) 6mo and older 04/12/2018 Influenza, Unspecified 01/03/2022,01/24/2020 Pfizer SARS-CoV-2 COVID-19, mRNA, LNP-S, preservative free 03/06/2022 Td Tetanus diptheria (Tdvax) 7yo and older 09/09 Surgical History Surgery Date Site/Laterality Comments OTHER SURGICAL HISTORY 04/2000 PROCEDURE: [place] THYROIDECTOM[place] TOTAL/SUBTOTAL RAD NECK DISSECT OTHER SURGICAL HISTORY PROCEDURE: [place] TONSILLECTOMY & ADENOIDECTOMY AGE 11/>; COMMENT: age 7 OTHER SURGICAL HISTORY PROCEDURE: [place] ANES MAJOR LOWER ABDOMINAL VESSELS IVC LIGATION Medical History Medical History Date Comments Malignant neoplasm of thyroi d gland ([facility] V24, [facility] V28) DX:Malignant neoplasm of th yroid gland [...] bladder incontinence, female Seizure disorder ([facility] V2 4, [facility] V28) DX:Seizure disorder (HCC); C OMMENT: adult-onset and last about 20 years; used to be on Tegretol and was weaned off; last 2009 Hypothyroidism DX:Hypothyroidis m; COMMENT: surgical resection Mixed medullary-papillary ca rcinoma of thyroid ([facility] V24, [facility] V28) DX:Mixed medullary- papillary carcinoma of thyroid [...] for your loved ones. For example, child nutrition assistant or elderly care for an older adult? [...] Mass Index 30.55 12/25/2024 4:40 PM EDT Plan of Treatment Health Maintenance Due Date Last Done Comments Diabetes: Annual Foot Exam 1974 Pneumococcal Vaccine: 50+ Years (1 of 2 - PCV) 07/27/1983 Zoster Vaccines (1 of 2) 07/27/1983 HIV Screening 04/16/2021 RSV Immunization Adult Patients (1 - Risk 60-74 years 1-dose series) 2024 Diabetes: Annual Retina Eye Exam 08/02/2024 08/03/2023 Diabetes: Annual Urine Albumin-Creatinine Ratio (uACR) 10/02/2024 10/03/2023 Breast Cancer Screening 11/15/2024 11/16/19 23, 11/11/2021, 07/21/2020, Additional history exists COVID-19 Vaccine ( season) 2024 03/06/2022, 01/13/2021, 04/21/2020, Additional history exists Influenza Vaccine (#1) 2024 [...] long-term current use of insulin ([facility] V24, [facility] V28) HEMOGLOBIN A1C Routine 06/22/2024 11:40 AM EDT Type 2 diabetes mellitus without complication, without long-term current use of insulin ([facility] V24, [facility] V28) LIPID PANEL WITH REFLEX TO DIRECT LDL Routine 06/22/2024 11:40 AM EDT Type 2 diabetes mellitus without complication, without long-term current use of insulin ([facility] V24, [facility] V28) URINE ALBUMIN CREATININE RATIO Routine 10/03/2023 [...] 06/22/2024 4:03 PM [facility] Triglycerides 108 0 - 150 mg/dL LAB CHEMISTRY METHOD 06/22/2024 4:03 PM [facility] HDL 56 >=40 mg/dL LAB CHEMISTRY METHOD 06/22/2024 4:03 PM [facility] LDL Calculated 76 0 - 100 mg/dL LAB CHEMISTRY METHOD 06/22/2024 4:03 PM [facility] VLDL Cholesterol Deni 21.6 mg/dL LAB CHEMISTRY METHOD 06/22/2024 4:03 PM [facility] Non HDL Chol. (LDL+VLDL) 98 <145 mg/dL LAB CHEMISTRY METHOD 06/22/2024 4:03 PM [facility] Chol/HDL Ratio 2.8 0.0 - 4.4 LAB CHEMISTRY METHOD 06/22/2024 4:03 PM [facility] Blood Venous blood specimen / Unknown Venipuncture / Unknown 06/22/2024 11:40 AM EDT 06/22/2024 11:40 AM EDT us Kendra Iyer MD LAB BLOOD ORDERABLES Final Resul t Performing Organization Address [facility]/ZIP Co de Phone Number [facility] [address] [place] [address], [place] [phone] * (ABNORMAL) Hemoglobin A1c (06/22/2024 11:40 AM EDT) Hemoglobin A1C 7.1(H) <6.5 % LAB CHEMISTRY METHOD 06/22/2024 8:22 PM EDT [facility] Mean Bld Glu Estim. 157 mg/dL LAB CHEMISTRY METHOD 06/22/2024 8:22 PM EDT [facility] Blood Venous blood specimen / Unknown Venipuncture / Unknown 06/22/2024 11:40 AM EDT 06/22/2024 11:40 AM EDT us Kendra Iyer MD LAB BLOOD ORDERABLES Final Resul t Performing Organization Address [facility]/ZIP Co de Phone Number [facility] [address] [place] [address], [place] [phone] * (ABNORMAL) Comprehensive metabolic panel (06/22/2024 11:40 AM EDT) Sodium 142 133 - 145 mmol/L LAB CHEMISTRY METHOD 06/22/2024 4:03 PM EDT [facility] Potassium 4.3 3.5 - 5.5 mmol/L LAB CHEMISTRY METHOD 06/22/2024 4:03 PM EDT [facility] Chloride 108 96 - 110 mmol/L LAB CHEMISTRY METHOD 06/22/2024 4:03 PM EDT [facility] CO2 26 21 - 32 mmol/L LAB CHEMISTRY METHOD 06/22/2024 4:03 PM EDT [facility] Anion Gap 8 3 - 11 LAB CHEMISTRY METHOD 06/22/2024 4:03 PM EDT [facility] Glucose 105(H) 70 - 100 [...] 11:40 AM EDT 06/22/2024 11:40 AM EDT Kendra Iyer MD LAB BLOOD ORDERABLES Final Resul t [facility] ([facility]) [facility] [address] [place] [address], [place] [phone] * Urine Albumin Creatinine Ratio (10/03/2023) Urine [...] ult * Cervical Cancer Screening: HPV (07/10/2020) Pathologist formerly [facility] Cervical Cancer Screening: HPV negative abstracted Result [facility] Historical Provider HEALTH MAINTENANCE Final Result * Hepatitis C Screening (10/18/2018) Pathologist formerly [facility] Hepatitis C Screening abstracted Result [facility] Provider HEALTH MAINTENANCE Final Result * Colonoscopy (10/24/2017) Pathologist formerly [facility] Colonoscopy No interpretation , abstracted Anatomical Region Laterality Modality Other Result [facility] Historical Provider HEALTH MAINTENANCE Final Result from Last 3 Months or Most Recently Relevant to Health Maintenance Insurance [employer] Care Teams Electrical Prospecting Operator Relationship Specialty Start Date End Date Kendra Iyer MD [address] [place] [phone] PCP - General Internal Medicine 06/06/24
== END 2024-12-25 15:52 | disposition home or self-care (01) ==
LOC: HO.HCS 15:16
PROVIDERS: PCP Internal Medicine; Visit Provider Internal Medicine Cardiovascular Disease
DX: R06.02 Shortness of breath (principal); I49.3 Ventricular premature depolarization
CPT/HCPCS: 99214

== ENCOUNTER 2024-12-27 10:06 | Outpatient (REF) | payer OTHER, SELFPAY ==
--- OUTSIDE RECORDS SUMMARY | 2024-12-25 16:30 | XMS_ITS | Encounter Summary ---
Author Organization [facility] Address [address] [place] [address] Care Team Providers Care Purchasing/Receiving Name Role Phone Kendra Iyer MD Primary Care Provider [phone] Reason for Referral * Imaging (Routine) - Authorized Specialty Diagnoses / Procedures Referred By Selene portillo Referred To Contact Radiology Diagnoses Screening mammogram for breast cancer Procedures MG Mammo Digital Screening bilat Kendra Iyer MD [address] [place] [address] Phone: tel: fax: External Performed Referral ID Status Reason Start Date Expiration Date V isits Requested Visits Authorized [id number] Authorized 12/25/2024 12/25/2025 1 1 * Consultation (Routine) - Closed Specialty Diagnoses / Procedures Referred By Selene portillo Referred To Contact Gynecology Diagnoses Screening for cervical cancer Kendra Iyer MD [address] [place] [address] Phone: tel: fax: Juanjose Wilcox MD [address] [place] [phone] Phone: tel: fax: Referral ID Status Reason Start Date Expiration Date V isits Requested Visits Authorized [id number] Closed Specialty Services Required 12/25/2024 12/25/2025 1 1 Reason for Visit * Reason Comments Follow-up Encounter Details Date Type Department Care Team ([facility] st Contact Info) Description 12/25/2024 4:30 PM EDT Office Visit Adult Medicine [facility] [address] [place] [address] Kendra Iyer MD [address] [place] [address] Type 2 diabetes mellitus without complication, without long-term current use of insulin (CMS/HCC V24, CMS/HCC V28) (Primary Dx); Acquired hypothyroidism; [...] for your loved ones. For example, child daycare worker or elderly care for an older adult? [...] tablet 1 12/25/2024 documented in this encounter Progress Notes * Kendra Iyer MD - 12/25/2024 4:30 PM EDT Images from the original note were not included. CHIEF COMPLAINT: Follow-up IDENTIFIER: Vicky Meade is a 59 y.o. old female. 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 Patient had a syncopal episode in May, did see cardiology underwent testing, reports that she had a visit today at cardiology and she is being sent for a coronary CT calcium scoring. ROS: Review of systems: Pertinent items are noted in HPI PAST MEDICAL HISTORY: Patient Active Problem List Diagnosis Date Noted Stress bladder incontinence, female 03/15/2024 Seizure disorder ([facility] V24, [facility] V28) 03/15/2024 Mixed medullary-papillary carcinoma of thyroid ([facility] V24, [facility] V28) 03/15/2024 Hypothyroidism 03/15/2024 Splenic laceration 10/06/2020 Type 2 diabetes mellitus without complication, without long-term current use of insulin ([facility] V24, [facility] V28) 06/24/2020 Lower extremity edema 10/18/2018 Hyperlipidemia 04/12/2018 Early menopause 04/12/2018 Cervical cancer ([facility] V24, [facility] V28) 04/18/2012 SOCIAL HISTORY: Social History Tobacco Use Smoking status: Former Smokeless tobacco: Never Substance Use Topics Alcohol use: Yes FAMILY HISTORY: Family Status Relation Name Status Mother Alive Father Alive MGM PGM Daughter Alive Sister Alive Sister Alive MGF PGF Daughter Alive No partnership data on file Family History Problem Relation Name Age of Onset Hypertension Mother Hypertension Father Prostate cancer Father Colon cancer Maternal Grandmother Other cancer Paternal Grandmother ovarian dx age 82, 87 Schizophrenia Daughter ACTIVE MEDICATIONS: Outpatient Medications Marked as Taking for the 12/25/24 encounter (Office Visit) with Kendra Iyer MD Medication Sig Dispense Refill empagliflozin (JARDIANCE) 25 mg tablet Take 1 tablet (25 mg total) by mouth 1 (one) time each day. 90 tablet 1 hydroCHLOROthiazide (MICROZIDE) 12.5 mg capsule Take 1 Capsule by mouth daily as needed for Other (leg swelling). levothyroxine (SYNTHROID, LEVOTHROID) 125 mcg tablet TAKE ONE (1) TABLET BY MOUTH EVERY DAY 90 tablet 1 metFORMIN XR (GLUCOPHAGE-XR) 500 mg 24 hr tablet 1000mg in AM and 500 mg in PM Do not crush, chew, or split. 270 tablet 1 omeprazole (PriLOSEC) [address] capsule TAKE ONE (1) CAPSULE BY MOUTH EVERY DAY 90 capsule 1 rosuvastatin (CRESTOR) 10 mg tablet TAKE ONE (1) TABLET BY MOUTH EVERY DAY 90 tablet 1 [DISCONTINUED] levothyroxine (SYNTHROID, LEVOTHROID) 125 mcg tablet TAKE ONE (1) TABLET BY MOUTH EVERY DAY TUESDAY THROUGH TUESDAY 72 tablet 1 [DISCONTINUED] metFORMIN XR (GLUCOPHAGE-XR) 500 mg 24 hr tablet 1000mg in AM and 500 mg in PM Do not crush, chew, or split. ALLERGIES: Patient has no known allergies. PHYSICAL EXAM: Blood pressure 104/78, pulse 72, temperature 36.8 ??C (98.2 ??F), temperature source Temporal, resp. rate 14, height 1.626 m (64 ), weight 80.7 kg (178 lb), SpO2 99%. Body mass index is 30.55 kg/m??.BMI is greater than 25.0 (above the normal range) - see Plan APPEARANCE: Alert and in no acute distress EYES: PERRLA, conjunctiva and sclera normal HEART: RRR with normal S1 and S2, no murmurs, no gallops, no JVD appreciated LUNG: clear to auscultation bilaterally EXTREMITIES: Extremities warm and well perfused without clubbing, cyanosis, or edema NEURO: Awake, alert and oriented x 3 and Normal gait LABS: IMPRESSION: 1. Type 2 diabetes mellitus without complication, without long-term current use of insulin ([facility], CMS/[facility] V28) 2. Acquired hypothyroidism 3. Mixed hyperlipidemia 4. Screening for cervical cancer 5. Screening mammogram for breast cancer ASSESSMENT/PLAN: Vicky was seen today for follow-up. Diagnoses and all orders for this visit: Type 2 diabetes mellitus without complication, without long-term current use of insulin ([facility] V24, [facility] V28) (Primary) - CBC and differential; Future - Hemoglobin A1c; Future - CBC and differential - Hemoglobin A1c - Microalbumin creatinine urine ratio; Future Acquired hypothyroidism - Thyroid stimulating hormone with reflex to free t4 and free t3; Future - Thyroid stimulating hormone with reflex to free t4 and free t3 Mixed hyperlipidemia - Comprehensive metabolic panel; Future - Lipid panel with reflex to direct LDL; Future - Comprehensive metabolic panel - Lipid panel with reflex to direct LDL Screening for cervical cancer - Ambulatory referral to Gynecology; Future Screening mammogram for breast cancer - MG Mammo Digital Screening bilat; Future - MG Mammo Digital Screening bilat Other orders - levothyroxine (SYNTHROID, LEVOTHROID) 125 mcg tablet; TAKE ONE (1) TABLET BY MOUTH EVERY DAY - metFORMIN XR (GLUCOPHAGE-XR) 500 mg 24 hr tablet; 1000mg in AM and 500 mg in PM Do not crush, chew, or split. Plan Continue with metformin 1000 mg in a.m. and 5 mg in p.m., empagliflozin 25 mg daily. Repeat hemoglobin A1c. Continue with hydrochlorothiazide 12.5 mg daily as needed for extremity swelling. Continue with levothyroxine 125 mcg daily, repeat TSH. Continue atorvastatin 10 mg a day, repeat lipid panel.Continue with omeprazole 40 mg daily. Patient due for mammogram and this has been ordered. Patient also due for Pap smear and has been referred to [facility]. Patient prefers to complete testing at [place] and was given printout for the mammogram as well as lab work. I have applied the code G2211 to this patient???s visit as the primary care provider, associated with longitudinal, non-procedural care and given our team has an ongoing relationship with the patientin the management of chronic conditions diabetes mellitus, hyperlipidemia, leading to the extensivework up, and management. Follow up in about 3 months (around 03/26/2025) for Medication review. Orders Placed This Encounter Procedures MG Mammo Digital Screening bilat Comprehensive metabolic panel Lipid panel with reflex to direct LDL Thyroid stimulating hormone with reflex to free t4 and free t3 CBC and differential Hemoglobin A1c Microalbumin creatinine urine ratio Ambulatory referral to Gynecology No results found for this or any previous visit (from the past 4 weeks). Kendra Iyer MD on 12/26/2024 at 11:24 AM EDT documented in this encounter Plan of Treatment [...] complication, without long-term current use of insulin ([facility] V24, [facility] V28) Expected: 12/25/2024, Expires: 06/24/2025 Hemoglobin A1c Lab Routine Type 2 diabetes mellitus without complication, without long-term current use of insulin ([facility] V[facility], [facility] V28) Expected: 12/25/2024, Expires: 06/24/2025 Microalbumin creatinine urine ratio Lab Routine Type 2 diabetes mellitus without complication, without long-term current use of insulin ([facility] V[facility], [facility] V28) Expected: 12/25/2024, Expires: 06/24/2025 MG Mammo [...] complication, without long-term current use of insulin ([facility] V[facility], [facility] V28)- Primary Acquired hypothyroidism Unspecified hypothyroidism Mixed [...] documented as of this encounter Care Teams Purchasing/Receiving Relationship Specialty Start Date End Date Kendra Iyer MD [address] [place] [phone] PCP - General Internal Medicine 06/06/24 documented as of this encounter
[2024-12-27 11:38] LABS: MANUAL DIFF FLAG NO
[2024-12-27 11:41] LABS: Hematocrit 38.9 % (37.0-47.0); Hemoglobin 12.5 g/dl (12.0-16.0); Imm Gran Abs Auto 0.00 X10*3/uL (0.00-0.03); Imm Gran Pct Auto 0.0 % (0.0-0.4); Lymphocytes Absolute Auto 2.3 X10*3/uL (1.2-4.9); Mean Corpuscular HGB Conc 32.1 g/dl (31.0-35.0); Mean Corpuscular Hemoglobin 25.9 pg (27.0-33.0); Mean Corpuscular Volume 80.7 fL (80.0-98.0); NRBC Abs Auto 0.000 X10*3/uL (0.0-0.012); NRBC Pct Auto 0.0 /100WBC (0.0-0.2); Platelet Count 281 X10*3/uL (160-400); Red Blood Count 4.82 X10*6/uL (4.20-5.50); White Blood Count 4.9 X10*3/uL (4.8-10.8)
--- OUTSIDE RECORDS SUMMARY | 2024-12-27 11:58 | XMS_ITS | Clinical Summary ---
Author Organization Patient Business Ser [facility] [place] Address [address] [place] [address] Care Team Providers Care Etl Developer Name Role Phone Kendra Iyer MD Primary Care Provider [phone] Allergies No known active allergies Medications hydroCHLOROthia [...] Stress bladder incontinence, female 03/15/2024 Seizure disorder ([facility] V24, [facility] V28) 1208/2023 Overview (03/15/2024): adult-onset and last about 20 years; used to be on Tegretol and was weaned off Mixed medullary-papillary ca rcinoma of thyroid ([facility] V24, [facility] V28) 03/15/2024 Overview (03/15/2024): s/p resection with nodes, local XRT, follow-up imaging for years Hypothyroidism 03/15/2024 Splenic laceration 10/06/2020 Overview (03/15/2024): Trauma 09/04/2020 Type 2 diabetes mellitus wit hout complication, without long-term current use of insulin ([facility] V24, [facility] V28) 06/24/2020 Lower extremity edema 10/18/2018 Hyperlipidemia 04/12/2018 Early menopause 04/12/2018 Cervical cancer ([facility] V24, [facility] V28) 04/18 Encounters Date Type Department Care Team Description 12/25/2024 4:30 PM EDT Office Visit Adult Medicine [address] [phone] Kendra Iyer MD Type 2 diabetes mellitus without complication, without long-term current use of insulin ([facility] V24, [facility] V28) (Primary Dx); Acquired hypothyroidism; Mixed hyperlipidemia; [...] Site/Laterality Comments OTHER SURGICAL HISTORY 04/2000 PROCEDURE: [place] THYROIDECTOMY TOTAL/SUBTOTAL RAD NECK DISSECT OTHER SURGICAL HISTORY PROCEDURE: IN TONSILLECTOMY & ADENOIDECTOMY AGE 11/>; COMMENT: age 7 OTHER SURGICAL HISTORY PROCEDURE: IN ANES MAJOR LOWER ABDOMINAL VESSELS IVC LIGATION Medical History Medical History Date Comments Malignant neoplasm of thyroi d gland ([facility] V24, [facility] V28) DX:Malignant neoplasm of th yroid gland [...] female DX:Stress bladder incontinence, female Seizure disorder ([facility] V2 4, [facility] V28) DX:Seizure disorder (HCC); C OMMENT: adult-onset and last about 20 years; used to be on Tegretol and was weaned off; last 2009 Hypothyroidism DX:Hypothyroidis m; COMMENT: surgical resection Mixed medullary-papillary ca rcinoma of thyroid ([facility] V24, [facility] V28) DX:Mixed medullary- papillary carcinoma of thyroid [...] care for your loved ones. For example, children's tutor nursery or elderly care for an older adult? [...] complication, without long-term current use of insulin ([facility] V24, [facility] V28) HEMOGLOBIN A1C Routine 06/22/2024 11:40 AM EDT Type 2 diabetes mellitus without complication, without long-term current use of insulin ([facility] V24, [facility] V28) LIPID PANEL WITH REFLEX TO DIRECT LDL Routine 06/22/2024 11:40 AM EDT Type 2 diabetes mellitus without complication, without long-term current use of insulin ([facility] V24, [facility] V28) URINE ALBUMIN CREATININE RATIO Routine 10/03/2023 [...] mg/dL LAB CHEMISTRY METHOD 06/22/2024 4:03 PM [facility] Triglycerides 108 0 - 150 mg/dL LAB CHEMISTRY METHOD 06/22/2024 4:03 PM [facility] HDL 56 >=40 mg/dL LAB CHEMISTRY METHOD 06/22/2024 4:03 PM [facility] LDL Calculated 76 0 - 100 mg/dL LAB CHEMISTRY METHOD 06/22/2024 4:03 PM [facility] VLDL Cholesterol Deni 21.6 mg/dL LAB CHEMISTRY METHOD 06/22/2024 4:03 PM [facility] Non HDL Chol. (LDL+VLDL) 98 <145 mg/dL LAB CHEMISTRY METHOD 06/22/2024 4:03 PM [facility] Chol/HDL Ratio 2.8 0.0 - 4.4 LAB CHEMISTRY METHOD 06/22/2024 4:03 PM [facility] Blood Venous blood specimen / Unknown Venipuncture / Unknown 06/22/2024 11:40 AM EDT 06/22/2024 11:40 AM EDT us Kendra Iyer MD LAB BLOOD ORDERABLES Final Resul t Performing Organization Address [facility]/ZIP Co de Phone Number [facility] [address] [place] [address], [place] [phone] * (ABNORMAL) Hemoglobin A1c (06/22/2024 11:40 AM EDT) Hemoglobin A1C 7.1(H) <6.5 % LAB CHEMISTRY METHOD 06/22/2024 8:22 PM EDT [facility] Mean Bld Glu Estim. 157 mg/dL LAB CHEMISTRY METHOD 06/22/2024 8:22 PM EDT [facility] Blood Venous blood specimen / Unknown Venipuncture / Unknown 06/22/2024 11:40 AM EDT 06/22/2024 11:40 AM EDT us Kendra Iyer MD LAB BLOOD ORDERABLES Final Resul t Performing Organization Address [facility]/ZIP Co de Phone Number [facility] [address] [place] [address], [place] [phone] * (ABNORMAL) Comprehensive metabolic panel (06/22/2024 11:40 AM EDT) Sodium 142 133 - 145 mmol/L LAB CHEMISTRY METHOD 06/22/2024 4:03 PM EDT [facility] Potassium 4.3 3.5 - 5.5 mmol/L LAB CHEMISTRY METHOD 06/22/2024 4:03 PM EDT [facility] Chloride 108 96 - 110 mmol/L LAB CHEMISTRY METHOD 06/22/2024 4:03 PM EDT [facility] CO2 26 21 - 32 mmol/L LAB CHEMISTRY METHOD 06/22/2024 4:03 PM EDT [facility] Anion Gap 8 3 - 11 LAB CHEMISTRY METHOD 06/22/2024 4:03 PM EDT [facility] Glucose 105(H) 70 - 100 mg/dL LAB CHEMISTRY METHOD 06/22/2024 4:03 PM [facility] BUN 13 5 - 25 mg/dL LAB CHEMISTRY METHOD 06/22/2024 4:03 PM [facility] Creatinine 0.95 0.50 - 1.10 mg/dL LAB CHEMISTRY METHOD 06/22/2024 4:03 PM [facility] eGFR 69 >=60 mL/min/1. 73m2 LAB CHEMISTRY METHOD 06/22/2024 4:03 PM [facility] Comment:Calculation based on the Chronic Kidney Disease Epidemiology Collaboration (CKD-EPI) equation refit without adjustment for race. BUN/Creatinine Ratio 13.7 LAB CHEMISTRY METHOD 06/22/2024 4:03 PM [facility] Calcium 8.9 8.5 - 10.5 mg/dL LAB CHEMISTRY METHOD 06/22/2024 4:03 PM [facility] AST (SGOT) 23 10 - 42 unit/L LAB CHEMISTRY METHOD 06/22/2024 4:03 PM [facility] ALT (SGPT) 37 10 - 60 unit/L LAB CHEMISTRY METHOD 06/22/2024 4:03 PM [facility] Alkaline Phosphatase 66 42 - 121 unit/L LAB CHEMISTRY METHOD 06/22/2024 4:03 PM [facility] Total Protein 7.2 6.0 - 8.0 g/dL LAB CHEMISTRY METHOD 06/22/2024 4:03 PM [facility] Albumin 3.9 3.2 - 5.0 g/dL LAB CHEMISTRY METHOD 06/22/2024 4:03 PM [facility] Total Bilirubin 0.4 0.0 - 1.4 mg/dL LAB CHEMISTRY METHOD 06/22/2024 4:03 PM [facility] Blood Venous blood specimen / Unknown Venipuncture / Unknown 06/22/2024 11:40 AM EDT 06/22/2024 11:40 AM EDT Kendra Iyer MD LAB BLOOD ORDERABLES Final Resul t [facility] ([facility]) [facility] [address] [place] [address], [place] [phone] * Urine Albumin Creatinine Ratio (10/03/2023) Urine [...] * Cervical Cancer Screening: HPV (07/10/2020) Pathologist [facility] Cervical Cancer Screening: HPV negative abstracted Result [facility] Historical Provider HEALTH MAINTENANCE Final Result * Hepatitis C Screening (10/18/2018) Pathologist [facility] Hepatitis C Screening abstracted Result [facility] Provider HEALTH MAINTENANCE Final Result * Colonoscopy (10/24/2017) Pathologist [facility] Colonoscopy No interpretation , abstracted Anatomical Region Laterality Modality Other Result [facility] Historical Provider HEALTH MAINTENANCE Final Result from Last 3 Months or Most Recently Relevant to Health Maintenance Insurance [facility] Care Teams Etl Developer Relationship Specialty Start Date End Date Kendra Iyer MD [address] [place] [phone] PCP - General Internal Medicine 06/06/24
--- OUTSIDE RECORDS SUMMARY | 2024-12-27 11:58 | XMS_ITS | Patient Health Record ---
Author Organization [facility] Address [address] [place] [address] Care Team Providers Care Slot Attendant Name Role Phone NHI CARRERO Primary Care [...] Problem Status W/U Status Risk Notes Problem 735055114 Colon cancer screening (Z12.11) Active confirmed Problem 591268181 Personal history of colonic polyps (Z86.010) Active confirmed Problem 781805883 Gastroesophageal reflux disease without esophagitis (K21.9) Active [...] Coverage End Date [employer] PPO [address] [place] [phone] [id number] BABAK MUHAMMAD Self - patient is the insured Medical (General) History Medical History History ICD Code hyperlipidemia Hypothyroidism Surgical History Surgery Date(Month/Year) tonsillectomy thyroidectomy, complete, his tory of papillary thyroid carcinoma, 2001 partial parathyroidectomy
[2024-12-27 12:13] LABS: Hemoglobin A1C 175.4853 umol/L; Total Hemoglobin (HGBA1C) 3312.8459 umol/L
[2024-12-27 12:14] LABS: Alanine Aminotransferase 29 U/L (0-31); Albumin Level 4.7 g/dL (3.5-5.0); Alkaline Phosphatase 56 U/L (39-117); Anion Gap 12 (12-20); Aspartate Amino Transferase 32 U/L (5-31); Blood Urea Nitrogen 16 mg/dL (9-16); Calcium 8.8 mg/dL (8.4-10.2); Carbon Dioxide 28 mmol/L (22-29); Chloride 105 mmol/L (96-108); Cholesterol 190 mg/dL (<200); Estimated Glomerular Filt Rate > 60; HDL Cholesterol 61 mg/dL (>40); Potassium 3.7 mmol/L (3.3-5.1); Sodium 141 mmol/L (135-145); Total Protein 7.5 g/dL (6.5-8.0); Triglycerides 107 mg/dL (<150)
== END 2024-12-27 10:07 | disposition home or self-care (01) ==
LOC: HO.WFDLDS 10:06
PROVIDERS: Visit Provider Internal Medicine
DX: E11.9 Type 2 diabetes mellitus without complications (principal); E78.2 Mixed hyperlipidemia; E03.9 Hypothyroidism, unspecified
CPT/HCPCS: 36415; 80053; 80061; 83036; 84443; 84481; 85025

== ENCOUNTER 2025-03-05 12:35 | Outpatient (REF) | payer OTHER, SELFPAY ==
--- NOTE | ~2025-03-05 | MM_ITS ---
EXAMINATION: MM SCREENING DIGITAL BREAST TOMOSYNTHESIS, BILATERAL CLINICAL INFORMATION: Screening. Asymptomatic. COMPARISON: Mammography: Baseline. TECHNIQUE: Digital breast mammography with tomosynthesis is performed in both the craniocaudal and mediolateral oblique views along with computer-aided detection (CAD). FINDINGS: The breasts are heterogeneously dense, which may obscure small masses. Left: There are no significant masses, abnormal calcifications, or other abnormalities. Right: Asymmetry retroareolar region posterior depth on MLO view. No suspicious calcifications or other abnormal findings. MM/MM tomosynthesis screening BI IMPRESSION: Additional imaging is recommended ASSESSMENT: BI-RADS Category 0: Incomplete - Need additional Imaging Evaluation RECOMMENDATION: 1. Additional views of the left breast. 2. Targeted ultrasound if warranted after review of the additional views. 3. Radiology department staff will contact the patient for additional imaging. Additional Imaging required Electronically signed by: Ayse Vega DO 03/06/2025 03:47 PM [facility]
--- OUTSIDE RECORDS SUMMARY | 2025-03-05 16:08 | XMS_ITS | Patient Health Record ---
Author Organization [facility] Address [address] [place] [address] Care Team Providers Care Wheelchair Van Driver Name Role Phone NHI CARRERO Primary Care Provider Nelson Taylor Jr Dongchristina Skelton Reason For Referral No Information Medications Medication SIG (Take, Route, Frequency, Duration) Notes Start Date End Date Status Rosuvastatin Calcium 40 MG Tablet Orally Active Vitamin D (Ergocalciferol) 1000 mcg Active Ibuprofen PRN Active Euthyrox 125 MCG Tablet Orally Active Omeprazole 40 MG Capsule Delayed Release 1 capsule 30 minutes before morning meal Orally Once a day; Duration: 30 days 08/25/2020 Active MiraLax (colon prep) 8.3 ounce ((238) grams mixed with Gatorade or Crystal Light orally begin at 5:00 p.m. the day before the procedure; Duration: 1 day 08/25/2020 Active Immunizations Vaccine Route Administration Date Status Comme nts Influenza Unknown 01/23/2020 Administered Social History Tobacco Use: Social History Observation Description Date Details (start date - stop date) Never Smoker NA - NA Social History Drugs/Alcohol: Social Info Question Answer Notes Alcohol Screen Did you have a drink containing alcohol in the past year? Yes How often did you have a drink containing alcohol in the past year? 2 to 4 times a month (2 points) How often did you have 6 or more drinks on one occasion in the past year? Never (0 point) Points 2 Interpretation Negative Tobacco Use: Social Info Question Answer Notes Tobacco Use/Smoking Patient is a nonsmoker Additional Details Category Social Info Options Details Miscellaneous: Marital status: Occupation: registered nurse Problems Problem Type SNOMED Code ICD Code Onset Dates Problem Status W/U Status Risk Notes Problem Colon cancer screening (199636812) Colon cancer screening (Z12.11) Active confirmed Problem History of polyp of colon (situation) (227761134) Personal history of colonic polyps (Z86.010) Active confirmed Problem Gastroesophageal reflux disease without esophagitis (462403592) Gastroesophageal reflux disease without esophagitis (K21.9) Active [...] Coverage End Date [employer] PPO [address] [place], [place] [phone] [id number] BABAK MUHAMMAD Self - patient is the insured Medical (General) History Medical History History ICD Code hyperlipidemia Hypothyroidism Surgical History Surgery Date(Month/Year) tonsillectomy thyroidectomy, complete, his tory of papillary thyroid carcinoma, 2001 partial parathyroidectomy
--- OUTSIDE RECORDS SUMMARY | 2025-03-05 16:08 | XMS_ITS | Clinical Summary ---
Author Organization Patient Business Ser [facility] Address [address] [place] [address] Care Team Providers Care Hand Tool Filer Name Role Phone Kendra Iyer MD Primary Care Provider [phone] Allergies No known active allergies Medications hydroCHLOROthia zide (MICROZIDE) 12.5 mg capsule Take 1 Capsule by mouth daily as needed for Other (leg swelling). 01/19/2022 Active rosuvastatin (CRESTOR) 10 mg tablet TAKE ONE (1) TABLET BY MOUTH EVERY DAY 90 tablet 1 09/11/2024 Active omeprazole (PriLOSEC) [address] capsule TAKE ONE (1) CAPSULE BY MOUTH EVERY DAY 90 capsule 1 09/11/2024 Active empagliflozin (JARDIANCE) 25 mg tablet Take 1 tablet (25 mg total) by mouth 1 (one) time each day. 90 tablet 1 09/24/2024 Active levothyroxine (SYNTHROID, LEVOTHROID) 125 mcg tablet TAKE ONE (1) TABLET BY MOUTH EVERY DAY 90 tablet 1 12/25/2024 Active metFORMIN XR (GLUCOPHAGE-XR) 500 mg 24 hr tablet 1000mg in AM and 500 mg in PM Do not crush, chew, or split. 270 tablet 1 12/25/2024 Active Active Problems Problem Noted Date Diagnosed Date Stress bladder incontinence, female 03/15/2024 Seizure disorder (CMS/HCC V24, CMS/HCC V28) 08/2023 Overview (03/15/2024): adult-onset and last about 20 years; used to be on Tegretol and was weaned off Mixed medullary-papillary ca rcinoma of thyroid ([facility] V24, [facility] V28) 03/15/2024 Overview (03/15/2024): s/p resection with nodes, local XRT, follow-up imaging for years Hypothyroidism 03/15/2024 Splenic laceration 10/06/2020 Overview (03/15/2024): Trauma 09/04/2020 Type 2 diabetes mellitus wit hout complication, without long-term current use of insulin ([facility] V24, [facility] V28) 06/24/2020 Lower extremity edema 10/18/2018 Hyperlipidemia 04/12/2018 Early menopause 04/12/2018 Cervical cancer ([facility] [place]24, [facility] V28) 04/18 Encounters Date Type Department Care Team Description 12/25/2024 4:30 PM EDT Office Visit Adult Medicine [address] [phone] Kendra Iyre MD Type 2 diabetes mellitus without complication, without long-term current use of insulin ([facility] V24, [facility] V28) (Primary Dx); Acquired hypothyroidism; Mixed hyperlipidemia; Screening for cervical cancer; Screening mammogram for breast cancer from Last 3 Months Immunizations Immunization Administration Dates Next Due Influenza Quadravalent, MDCK , 0.5ml, preservative free (Flucelvax) 6mo and older 04/12/2018 Influenza, Unspecified 01/03/2022,01/24/2020 Pfizer SARS-CoV-2 COVID-19, mRNA, LNP-S, preservative free 03/06/2022 Td Tetanus diptheria (Tdvax) 7yo and older 09/09 Surgical History Surgery Date Site/Laterality Comments OTHER SURGICAL HISTORY 04/2000 PROCEDURE: [place] THYROIDECTOMY TOTAL/SUBTOTAL RAD NECK DISSECT OTHER SURGICAL HISTORY PROCEDURE: [place] TONSILLECTOMY & ADENOIDECTOMY AGE 11/>; COMMENT: age 7 OTHER SURGICAL HISTORY PROCEDURE: [place] ANES MAJOR LOWER ABDOMINAL VESSELS IVC LIGATION Medical History Medical History Date Comments Malignant neoplasm of thyroi d gland ([facility] V24, [facility] V28) DX:Malignant neoplasm of th yroid gland [...] female DX:Stress bladder incontinence, female Seizure disorder ([facility] V2 4, [facility] V28) DX:Seizure disorder (HCC); C OMMENT: adult-onset and last about 20 years; used to be on Tegretol and was weaned off; last 2009 Hypothyroidism DX:Hypothyroidis m; COMMENT: surgical resection Mixed medullary-papillary ca rcinoma of thyroid ([facility] V24, [facility] V28) DX:Mixed medullary- papillary carcinoma of thyroid [...] do you feel lonely or isolated from ose around you? Never 06/06/2024 Food Risk [...] for your loved ones. For example, child development assistant or elderly care for an older [...] Date Recorded What is your living situation? Unrecognized valu e 06/06/2024 Comments No Sex and Gender Information [...] 07/27/1983 Zoster Vaccines (1 of 2) 07/27/1983 RSV Immunization Adult Patients (1 - Risk 50-74 years 1-dose series) 2014 HIV Screening 04/16/2021 Diabetes: Annual Retina Eye Exam 08/02/2024 08/03/2023 [...] Procedure Name Priority Date/Time Associated Diagnosis Comments EXTERNAL CLINICAL LAB 12/27/2024 EXTERNAL CLINICAL LAB 12/27/2024 COMPREHENSIVE METABOLIC PANEL Routine 06/22/2024 11:40 AM EDT Type 2 diabetes mellitus without complication, without long-term current use of insulin ([facility]/HCC V24, [facility] V28) HEMOGLOBIN A1C Routine 06/22/2024 11:40 AM EDT Type 2 diabetes mellitus without complication, without long-term current use of insulin (CMS/HCC V24, CMS/[facility] V28) LIPID PANEL WITH REFLEX TO DIRECT LDL Routine 06/22/2024 11:40 AM EDT Type 2 diabetes mellitus without complication, without long-term current use of insulin (CMS/[facility] V24, CMS/[facility] V28) URINE ALBUMIN CREATININE RATIO Routine 10/03/2023 DIABETES EYE EXAM Routine 08/03/2023 SCREENING MAMMOGRAPHY BI 2-VIEW BREAST INC CAD Routine 11/15/2022 4:26 PM EDT Encounter for screening mammogram for malignant neoplasm of breast HPV Routine 07/10/2020 HEPATITIS C SCREENING Routine 10/18/2018 COLONOSCOPY Routine 10/24/2017 from Last 3 Months or Most Recently Relevant to Health Maintenance Results * External clinical lab (12/27/2024) Only the most recent of2 resultswithin the time period is included. us Provider [facility] LAB BLOOD ORDERABLES Fin al Result * Lipid panel with reflex to direct LDL (06/22/2024 11:40 AM EDT) Cholesterol 154 0 - 200 mg/dL LAB CHEMISTRY METHOD 06/22/2024 4:03 PM [facility] Triglycerides 108 0 - 150 mg/dL LAB CHEMISTRY METHOD 06/22/2024 4:03 PM [facility] HDL 56 >=40 mg/dL LAB CHEMISTRY METHOD 06/22/2024 4:03 PM [facility] LDL Calculated 76 0 - 100 mg/dL LAB CHEMISTRY METHOD 06/22/2024 4:03 PM [facility] VLDL Cholesterol Deni 21.6 mg/dL LAB CHEMISTRY METHOD 06/22/2024 4:03 PM [facility] Non HDL Chol. (LDL+VLDL) 98 <145 mg/dL LAB CHEMISTRY METHOD 06/22/2024 4:03 PM [facility] Chol/HDL Ratio 2.8 0.0 - 4.4 LAB CHEMISTRY METHOD 06/22/2024 4:03 PM [facility] Blood Venous blood specimen / Unknown Venipuncture / Unknown 06/22/2024 11:40 AM EDT 06/22/2024 11:40 AM EDT us Kendra Iyer MD LAB BLOOD ORDERABLES Final Resul t Performing Organization Address City/[facility]/ZIP Co de Phone Number [facility] [address] [place] [address], [place] [phone] * (ABNORMAL) Hemoglobin A1c (06/22/2024 11:40 AM EDT) Hemoglobin A1C 7.1(H) <6.5 % LAB CHEMISTRY METHOD 06/22/2024 8:22 PM EDT [facility] Mean Bld Glu Estim. 157 mg/dL LAB CHEMISTRY METHOD 06/22/2024 8:22 PM EDT [facility] Blood Venous blood specimen / Unknown Venipuncture / Unknown 06/22/2024 11:40 AM EDT 06/22/2024 11:40 AM EDT us Kendra Iyer MD LAB BLOOD ORDERABLES Final Resul t Performing Organization Address [facility] Co de Phone Number [facility] [address] [place] [address], [place] [phone] * (ABNORMAL) Comprehensive metabolic panel (06/22/2024 11:40 AM EDT) Pathologist [facility] Sodium 142 133 - 145 mmol/L LAB CHEMISTRY METHOD 06/22/2024 4:03 PM EDT [facility] Potassium 4.3 3.5 - 5.5 mmol/L LAB CHEMISTRY METHOD 06/22/2024 4:03 PM EDT [facility] Chloride 108 96 - 110 mmol/L LAB CHEMISTRY METHOD 06/22/2024 4:03 PM EDT [facility] CO2 26 21 - 32 mmol/L LAB CHEMISTRY METHOD 06/22/2024 4:03 PM EDT [facility] Anion Gap 8 3 - 11 LAB CHEMISTRY METHOD 06/22/2024 4:03 PM EDT [facility] Glucose 105(H) 70 - 100 mg/dL LAB CHEMISTRY METHOD 06/22/2024 4:03 PM [facility] BUN 13 5 - 25 mg/dL LAB CHEMISTRY METHOD 06/22/2024 4:03 PM [facility] Creatinine 0.95 0.50 - 1.10 mg/dL LAB CHEMISTRY METHOD 06/22/2024 4:03 PM [facility] eGFR 69 >=60 mL/min/1. 73m2 LAB CHEMISTRY METHOD 06/22/2024 4:03 PM [facility] Comment:Calculation based on the Chronic Kidney Disease Epidemiology Collaboration (CKD-EPI) equation refit without adjustment for race. BUN/Creatinine Ratio 13.7 LAB CHEMISTRY METHOD 06/22/2024 4:03 PM [facility] Calcium 8.9 8.5 - 10.5 mg/dL LAB CHEMISTRY METHOD 06/22/2024 4:03 PM [facility] AST (SGOT) 23 10 - 42 unit/L LAB CHEMISTRY METHOD 06/22/2024 4:03 PM [facility] ALT (SGPT) 37 10 - 60 unit/L LAB CHEMISTRY METHOD 06/22/2024 4:03 PM [facility] Alkaline Phosphatase 66 42 - 121 unit/L LAB CHEMISTRY METHOD 06/22/2024 4:03 PM [facility] Total Protein 7.2 6.0 - 8.0 g/dL LAB CHEMISTRY METHOD 06/22/2024 4:03 PM [facility] Albumin 3.9 3.2 - 5.0 g/dL LAB CHEMISTRY METHOD 06/22/2024 4:03 PM [facility] Total Bilirubin 0.4 0.0 - 1.4 mg/dL LAB CHEMISTRY METHOD 06/22/2024 4:03 PM [facility] Blood Venous blood specimen / Unknown Venipuncture / Unknown 06/22/2024 11:40 AM EDT 06/22/2024 11:40 AM EDT Kendra Iyer MD LAB BLOOD ORDERABLES Final Resul t [facility] [address] [place] [address], * Urine Albumin Creatinine Ratio (10/03/2023) Urine Albumin Creatinine Ratio abstracted Historical Provider MD HEALTH MAINTENANCE Final Result * Diabetes Eye [...] evidence of malignancy. BI-RADS 1 - negative Result [facility] Kt Maria MD IMG XR PROCEDURES Final Res ult * Cervical Cancer Screening: HPV (07/10/2020) Cervical Cancer Screening: HPV negative abstracted Result [facility] Historical Provider HEALTH MAINTENANCE Final Result * Hepatitis C Screening (10/18/2018) Pathologist [facility] Hepatitis C Screening abstracted Result [facility] Provider HEALTH MAINTENANCE Final Result * Colonoscopy (10/24/2017) Pathologist [facility] Colonoscopy No interpretation , abstracted Anatomical Region Laterality Modality Other Result [facility] Historical Provider HEALTH MAINTENANCE Final Result from Last 3 Months or Most Recently Relevant to Health Maintenance Insurance [employer] [facility] Care Teams Hand Tool Filer Relationship Specialty Start Date End Date Kendra Iyer MD [address] [place] [phone] PCP - General Internal Medicine 06/06/24
== END 2025-03-05 12:36 | disposition home or self-care (01) ==
LOC: HO.MAMMO 12:35
PROVIDERS: PCP Internal Medicine; Visit Provider Internal Medicine
DX: Z12.31 Encounter for screening mammogram for malignant neoplasm of breast (principal)
CPT/HCPCS: 77063; 77067

== ENCOUNTER → 2025-03-05 12:45 | Outpatient (BNV) | payer OTHER, SELFPAY | PROVIDERS: PCP Internal Medicine; Visit Provider Internal Medicine | DX: Z12.31 Encounter for screening mammogram for malignant neoplasm of breast (principal) | CPT/HCPCS: 77063; 77067 ==